=== PATIENT | female | born 1945 | race Caucasian/White ===

== ENCOUNTER → 2020-07-01 14:43 | Outpatient (CLI) | payer MEDICARE, SELFPAY ==
--- NOTE | 2020-07-01 14:44 | DI.RAD.S_ITS ---
PROCEDURE: XR DEXA AXIAL SKELETON INDICATIONS: Osteoporosis screening COMPARISON: None. FINDINGS: This blank DEXA report has been sent in error by the PACS system. The correct and complete report will be forthcoming in 1-2 days. Thank you for your patience and understanding. Dictated by: Cydney Jarrett MD, PhD on 07/01/2020 at 17:17 Approved by: Cydney Jarrett MD, PhD on 07/01/2020 at 17:17
== END ==
PROVIDERS: Family Provider Family Medicine; PCP Student in an Organized Health Care Education/Training Program; Referring Provider Student in an Organized Health Care Education/Training Program; Visit Provider Student in an Organized Health Care Education/Training Program
DX: M85.852 Other specified disorders of bone density and structure, left thigh (principal); Z13.820 Encounter for screening for osteoporosis; Z78.0 Asymptomatic menopausal state; F17.200 Nicotine dependence, unspecified, uncomplicated
CPT/HCPCS: 77080

== ENCOUNTER → 2020-07-22 08:17 | Outpatient (CLI) | payer MEDICARE, SELFPAY ==
[2020-07-22 08:54] LABS: INR 2.1 (0.9-1.3)
[2020-07-22 09:03] LABS: Cholesterol 191 mg/dL (140-199); HDL Cholesterol 46 mg/dL (40-60); LDL Cholesterol Calculated 116 mg/dL (<100); Triglycerides 143 mg/dL (35-150)
== END ==
PROVIDERS: Family Provider Family Medicine; PCP Student in an Organized Health Care Education/Training Program; Referring Provider Student in an Organized Health Care Education/Training Program; Visit Provider Student in an Organized Health Care Education/Training Program
DX: Z79.01 Long term (current) use of anticoagulants (principal); E78.2 Mixed hyperlipidemia
CPT/HCPCS: 36415; 80061; 85610

== ENCOUNTER → 2021-03-08 08:44 | Outpatient (CLI) | payer MEDICARE, SELFPAY ==
[2021-03-08 09:59] LABS: Prothrombin Time 60.1 SECONDS (10.1-12.7)
[2021-03-08 11:42] LABS: INR 5.1 (0.9-1.3)
== END ==
PROVIDERS: Family Provider Family Medicine; PCP Student in an Organized Health Care Education/Training Program; Referring Provider Student in an Organized Health Care Education/Training Program; Visit Provider Student in an Organized Health Care Education/Training Program
DX: Z79.01 Long term (current) use of anticoagulants (principal)
CPT/HCPCS: 36415; 85610

== ENCOUNTER → 2021-03-11 08:10 | Outpatient (CLI) | payer MEDICARE, SELFPAY ==
[2021-03-11 09:40] LABS: INR 1.5 (0.9-1.3); Prothrombin Time 17.6 SECONDS (10.1-12.7)
== END ==
PROVIDERS: Family Provider Family Medicine; PCP Student in an Organized Health Care Education/Training Program; Referring Provider Student in an Organized Health Care Education/Training Program; Visit Provider Student in an Organized Health Care Education/Training Program
DX: Z79.01 Long term (current) use of anticoagulants (principal)
CPT/HCPCS: 36415; 85610

== ENCOUNTER → 2021-03-16 08:38 | Outpatient (CLI) | payer MEDICARE, SELFPAY ==
[2021-03-16 09:39] LABS: INR 1.7 (0.9-1.3); Prothrombin Time 19.4 SECONDS (10.1-12.7)
== END ==
PROVIDERS: Family Provider Family Medicine; PCP Student in an Organized Health Care Education/Training Program; Referring Provider Student in an Organized Health Care Education/Training Program; Visit Provider Student in an Organized Health Care Education/Training Program
DX: I48.91 Unspecified atrial fibrillation (principal); Z79.01 Long term (current) use of anticoagulants
CPT/HCPCS: 36415; 85610

== ENCOUNTER → 2021-03-18 14:13 | Outpatient (CLI) | payer MEDICARE, SELFPAY ==
--- NOTE | 2021-03-18 14:15 | DI.RAD.S_ITS ---
PROCEDURE: XR CHEST 2V INDICATIONS: Chest congestion with cough TECHNIQUE: 2 views of the chest were acquired. COMPARISON: [facility], , CHEST 2 VIEW, 06/10/2014, 8:46. FINDINGS: Surgical changes and devices: None. Lungs and pleura: 4.9 x 4.3 cm masslike consolidation in the right hilar region. No pleural effusions or pneumothorax. Mediastinum: Mediastinal contours are normal. Heart size is normal. Bones and chest wall: No suspicious bony abnormalities. Soft tissues appear unremarkable. IMPRESSION: Masslike consolidation in the right hilar region. Differential considerations include a pneumonic infiltrate versus mass. Consider follow-up until resolution. Dictated by: Frank Aldridge M.D. on 03/18/2021 at 14:59 Approved by: Frank Aldridge M.D. on 03/18/2021 at 15:04
== END ==
LOC: LAB 14:17 → RAD 14:39
PROVIDERS: Family Provider Family Medicine; PCP Student in an Organized Health Care Education/Training Program; Referring Provider Student in an Organized Health Care Education/Training Program; Visit Provider Student in an Organized Health Care Education/Training Program
DX: R09.89 Other specified symptoms and signs involving the circulatory and respiratory systems (principal); R05.9 Cough, unspecified; R06.00 Dyspnea, unspecified
CPT/HCPCS: 71046

== ENCOUNTER → 2021-03-25 09:23 | Outpatient (CLI) | payer MEDICARE, SELFPAY ==
[2021-03-25 10:38] LABS: Prothrombin Time 23.3 SECONDS (10.1-12.7)
== END ==
PROVIDERS: Family Provider Family Medicine; PCP Student in an Organized Health Care Education/Training Program; Referring Provider Student in an Organized Health Care Education/Training Program; Visit Provider Student in an Organized Health Care Education/Training Program
DX: I48.91 Unspecified atrial fibrillation (principal); Z79.01 Long term (current) use of anticoagulants
CPT/HCPCS: 36415; 85610

== ENCOUNTER → 2021-04-27 09:13 | Outpatient (CLI) | payer MEDICARE, SELFPAY ==
[2021-04-27 11:03] LABS: Prothrombin Time 23.1 SECONDS (10.1-12.7)
== END ==
PROVIDERS: Family Provider Family Medicine; PCP Student in an Organized Health Care Education/Training Program; Referring Provider Student in an Organized Health Care Education/Training Program; Visit Provider Student in an Organized Health Care Education/Training Program
DX: Z79.01 Long term (current) use of anticoagulants (principal)
CPT/HCPCS: 36415; 85610

== ENCOUNTER 2021-07-24 07:50 | Observation (INO) | payer MEDICARE, SELFPAY ==
[2021-07-24] VITALS (23 sets, daily range): BP systolic 111–176; BP diastolic 62–90; PULSE 81–106; RESP 14–36; TEMP 35.6–36.8; O2SAT 91–97; BMI 17.4
--- NOTE | 2021-07-24 08:40 | ED_ITS ---
HPI - Weakness General Chief complaint: Weakness Stated complaint: States failure to thrive, dizzy x 3 months Time Seen by Provider: 07/24/21 07:51 Source: patient and family Mode of arrival: Family Vehicle History of Present Illness HPI Narrative: 68-year-old female heavy smoker presents with family in the chief complaint of generally failing to thrive over the past 2 weeks or so. A few weeks ago she was highly active and walking at least 1 mi per day and has had this slow and gradual decline. She denies any new medications or dietary change but has had significantly decreased appetite is having very little to or drink. She has had no fever or chills. She states that she has become profoundly weak and does not get up to do much at all over this time frame. She has had decreased bowel movements and is significantly nauseated and has very little desire to eat or drink. She has had no fever chills. She is a bit dizzy and lightheaded denies any classic vertigo. She has no chest pain or shortness of breath worse than normal. Related Data Home Medications Medication Instructions Recorded Confirmed acetaminophen 500 mg tablet 500 - 1,000 mg PO Q4H PRN #0 04/21/11 06/22/21 (Tylenol Extra Strength) warfarin 2.5 mg tablet 2.5 mg PO SEE INSTRUCTIONS tab 06/29/21 07/13/21 Previous Rx's Medication Instructions Recorded rosuvastatin 20 mg tablet (Crestor) 20 mg PO DAILY #90 tab 06/30/21 Allergies Allergy/AdvReac Type Severity Reaction Status Date / Time No Known Drug Allergies Allergy Verified 06/22/21 16:00 Review of Systems Review of Systems Narrative: GENERAL: See HPI HEENT: Denies sinus pain, ear pain, sore throat, difficulty swallowing, dizziness. RESPIRATORY: Denies dyspnea, cough, wheezing, hemoptysis, sputum. CARDIOVASCULAR: Denies chest pain, palpitations, orthopnea, edema, GASTROINTESTINAL: See HPI : Denies dysuria, frequency, incontinence, hematuria, urinary retention. MUSCULOSKELETAL: denies weakness, joint pain, or bony pain SKIN: Denies rash, skin lesions, or other NEUROLOGIC: Denies weakness, headache, numbness, change in speech, confusion, seizures, incoordination. PSYCHIATRIC: No concerning psychosocial issues. 12 point review of systems is negative except for those stated above Patient History Medical History Basal cell carcinoma of nose (2010) Coagulation disorder DVT (deep venous thrombosis) Surgical History History of colonoscopy with polypectomy (08/17/11) Family History Brother Age: 80 Cancer Hypertension Lung cancer Prostate cancer Mother Stroke History of blood clots Sister Age: 83 Dementia Hypertension Father Heart attack Grandfather Concussion Social History Smoking Status: Current every day smoker Smoking Status: Current every day smoker tobacco type: cigarettes Substance Use Type: does not use Exam Narrative Exam Narrative: GENERAL: [68 year old patient appears stated age. Well-developed patient, in mild distress. HEAD: Atraumatic. Normocephalic. EYES: Pupils equal round and reactive. Extraocular motions intact. No scleral icterus. No injection or drainage. ENT: Dry mucous membranes Nose without bleeding, purulent drainage. Throat without erythema, tonsillar hypertrophy or exudate. Airway patent. NECK: Trachea midline. Non tender CARDIOVASCULAR: Regular rate and rhythm without murmurs, gallops, or rubs. RESPIRATORY: Clear to auscultation. Breath sounds equal bilaterally. No wheezes, rales, or rhonchi. GASTROINTESTINAL: Abdomen soft, non-tender, nondistended. EXTREMITIES: No edema or joint tenderness. BACK: Nontender without deformity or crepitance. No flank tenderness. NEURO: AOx3. SKIN: Poor skin turgor No rash or erythema of visible areas Initial Vital Signs Initial Vital Signs: Vital Signs Temperature 97.8 F 07/24/21 08:06 Pulse Rate 106 H 07/24/21 08:06 Respiratory Rate 14 07/24/21 08:06 Blood Pressure 140/73 07/24/21 08:06 Pulse Oximetry 95 07/24/21 08:06 Course Orders Ordered: ED Orders 07/24/21 08:22 Basic Metabolic Panel Stat Complete Blood Count AUTO DIFF Stat Lactate (Lactic Acid) Stat Procalcitonin Stat Troponin I Stat 07/24/21 08:26 EKG-12 Lead Stat 07/24/21 09:27 XR acute abdomen series Stat 07/24/21 09:29 Blood Culture Stat 07/24/21 10:32 CT chest abd pel w con Stat 07/24/21 10:55 Urinalysis and Microscopic Stat Urine Culture Stat 07/24/21 12:30 Prothrombin Time INR Stat 07/24/21 13:55 COVID19 -Nasal RAPID/Pre-Proc Stat Sodium Chloride (Normal Saline 0.9%) 1,000 mls @ 150 mls/hr IV CONT KAILA Last Admin: 07/24/21 09:21 Dose: Not Given Documented by: MARIN Discontinued Medications Sodium Chloride (Normal Saline 0.9%) 1,000 mls @ 1,000 mls/hr IV BOLUS ONE Stop: 07/24/21 10:12 Last Infusion: 07/24/21 10:29 Dose: 0 mls/hr Documented by: Admin: 07/24/21 09:21 Dose: 1,000 mls/hr Documented by: MARIN Sodium Chloride (Normal Saline 0.9%) 1,000 mls @ 1,000 mls/hr IV BOLUS ONE Stop: 07/24/21 11:56 Last Infusion: 07/24/21 12:26 Dose: 0 mls/hr Documented by: Admin: 07/24/21 10:58 Dose: 1,000 mls/hr Documented by: WILLIAM Ceftriaxone Sodium 1,000 mg/ (Sodium Chloride) 100 mls @ 200 mls/hr IV NOW ONE Stop: 07/24/21 15:15 Last Admin: 07/24/21 15:25 Dose: 200 mls/hr Documented by: SONIA Ondansetron HCl (Ondansetron 4 Mg/2 Ml Inj) 4 mg IV NOW ONE Stop: 07/24/21 15:15 Last Admin: 07/24/21 15:25 Dose: 4 mg Documented by: SONIA Reevaluation(s) Reevaluation #1: Patient has now had 2 L of normal saline and finally produced a small amount of urine, she continues to be sufficiently weak that she requires assistance with ambulation to the bathroom. She is decompensated with the point that she will require hospitalization for stabilization of her condition. Treatment of her urinary tract infection, ongoing hydration and possible evaluation by physical therapy or case management depending on her response to therapies. Consultations Consultation #1: Hospitalist happy to accept Vital Signs Vital signs: Vital Signs - 8 hr 07/24/21 08:06 07/24/21 09:56 07/24/21 10:00 Temperature 97.8 F Pulse Rate 106 H 94 H 91 H Respiratory Rate 14 20 20 Blood Pressure 140/73 Pulse Oximetry 95 94 96 07/24/21 10:30 07/24/21 10:32 07/24/21 11:01 Temperature Pulse Rate 97 H 93 H 98 H Respiratory Rate 22 20 33 H Blood Pressure 173/79 H 170/79 H Pulse Oximetry 96 94 91 07/24/21 11:30 07/24/21 11:56 07/24/21 12:00 Temperature Pulse Rate 94 H 99 H 93 H Respiratory Rate 31 H 25 H 32 H Blood Pressure 158/74 H 176/72 H Pulse Oximetry 92 93 92 07/24/21 12:01 07/24/21 12:30 07/24/21 13:00 Temperature Pulse Rate 94 H 92 H 92 H Respiratory Rate 28 H 34 H 32 H Blood Pressure 159/69 H 157/71 H 141/66 H Pulse Oximetry 92 91 91 07/24/21 13:30 Temperature Pulse Rate 91 H Respiratory Rate 35 H Blood Pressure 139/81 Pulse Oximetry 92 MDM - Weakness Lab Data Result diagrams: 07/24/21 08:22 07/24/21 08:22 Labs: Lab Results 07/24/21 07/24/21 07/24/21 Range/Units 08:22 08:22 08:22 WBC 21.0 H (4.5-11.0) X10^3/uL RBC 4.44 (4.0-5.2) X10^6/uL Hgb 12.2 (12.0-16.0) g/dL Hct 37.4 (36-46) % MCV 84.3 (80-100) fL MCH 27.5 (26-34) PG MCHC 32.6 (30-36) % RDW 15.5 H (11.6-14.8) % Plt Count 434 H (150-400) X10^3/uL Neut % (Auto) 77.9 H (50-75) % Lymph % (Auto) 12.1 L (25-40) % [place] % (Auto) 5.7 (3-14) % Eos % (Auto) 3.6 (2-4) % Baso % (Auto) 0.7 (0-2) % Neut # (Auto) 72258 H (7342-4562) /uL Lymph # (Auto) 2500 (0774-0761) /uL [place]mer # (Auto) 1200 H (0-900) /uL Eos # (Auto) 800 H (0-450) /uL Baso # (Auto) 100 (0-100) /uL PT (10.1-12.7) SECONDS INR (0.9-1.3) Sodium 138 (137-145) mmol/L Potassium 4.3 (3.4-5.1) mmol/L Chloride 99 (98-107) mmol/L Carbon Dioxide 22 (22-32) mmol/L BUN 25 H (7-17) mg/dL Creatinine 0.70 (0.52-1.04) mg/dL Estimated GFR > 60 (>60) mL/min BUN/Creatinine Ratio 35.7 H (6-22) Glucose 88 (80-110) mg/dL Lactate 1.2 (0.7-2.1) mmol/L Calcium 9.1 (8.4-10.2) mg/dL Troponin I < 0.012 (0.01-0.034) ng/mL Procalcitonin (<0.5) ng/mL Urine Color Urine Appearance Urine pH (4.5-8.0) Ur Specific [place] (1.000-1.035) Urine Protein (Negative) Urine Glucose (UA) (Negative) g/dL Urine Ketones (NEGATIVE) Urine Occult Blood (Negative) Urine Nitrate (Negative) Urine Bilirubin (NEGATIVE) Urine Urobilinogen (0.2) E.U./dL Ur Leukocyte Esterase (NEGATIVE) Urine RBC (0-5/HPF) Urine WBC (0-5/HPF) Amorphous Sediment Urine Bacteria (None) Ur Culture Indicated? SARS-CoV-2 (PCR) (Negative) 07/24/21 07/24/21 07/24/21 Range/Units 08:22 10:55 12:30 WBC (4.5-11.0) X10^3/uL RBC (4.0-5.2) X10^6/uL Hgb (12.0-16.0) g/dL Hct (36-46) % MCV (80-100) fL MCH (26-34) PG MCHC (30-36) % RDW (11.6-14.8) % Plt Count (150-400) X10^3/uL Neut % (Auto) (50-75) % Lymph % (Auto) (25-40) % [place] % (Auto) (3-14) % Eos % (Auto) (2-4) % Baso % (Auto) (0-2) % Neut # (Auto) (7556-4679) /uL Lymph # (Auto) (9287-7578) /uL [place] # (Auto) (0-900) /uL Eos # (Auto) (0-450) /uL Baso # (Auto) (0-100) /uL PT 35.3 H (10.1-12.7) SECONDS INR 3.0 H (0.9-1.3) Sodium (137-145) mmol/L Potassium (3.4-5.1) mmol/L Chloride (98-107) mmol/L Carbon Dioxide (22-32) mmol/L BUN (7-17) mg/dL Creatinine (0.52-1.04) mg/dL Estimated GFR (>60) mL/min BUN/Creatinine Ratio (6-22) Glucose (80-110) mg/dL Lactate (0.7-2.1) mmol/L Calcium (8.4-10.2) mg/dL Troponin I (0.01-0.034) ng/mL Procalcitonin 0.08 (<0.5) ng/mL Urine Color Yellow Urine Appearance Clear Urine pH 5.5 (4.5-8.0) Ur Specific [place] 1.015 (1.000-1.035) Urine Protein Trace H (Negative) Urine Glucose (UA) Negative (Negative) g/dL Urine Ketones Trace H (NEGATIVE) Urine Occult Blood 2+ H (Negative) Urine Nitrate Negative (Negative) Urine Bilirubin Negative (NEGATIVE) Urine Urobilinogen 0.2 (0.2) E.U./dL Ur Leukocyte Esterase Trace H (NEGATIVE) Urine RBC 1-5/hpf (0-5/HPF) Urine WBC 5-10/hpf H (0-5/HPF) Amorphous Sediment 1+ Urine Bacteria Few (2-10) H (None) Ur Culture Indicated? Specimen cultured SARS-CoV-2 (PCR) (Negative) 07/24/21 Range/Units 13:55 WBC (4.5-11.0) X10^3/uL RBC (4.0-5.2) X10^6/uL Hgb (12.0-16.0) g/dL Hct (36-46) % MCV (80-100) fL MCH (26-34) PG MCHC (30-36) % RDW (11.6-14.8) % Plt Count (150-400) X10^3/uL Neut % (Auto) (50-75) % Lymph % (Auto) (25-40) % [place] % (Auto) (3-14) % Eos % (Auto) (2-4) % Baso % (Auto) (0-2) % Neut # (Auto) (9458-3203) /uL Lymph # (Auto) (7931-0034) /uL [place] # (Auto) (0-900) /uL Eos # (Auto) (0-450) /uL Baso # (Auto) (0-100) /uL PT (10.1-12.7) SECONDS INR (0.9-1.3) Sodium (137-145) mmol/L Potassium (3.4-5.1) mmol/L Chloride (98-107) mmol/L Carbon Dioxide (22-32) mmol/L BUN (7-17) mg/dL Creatinine (0.52-1.04) mg/dL Estimated GFR (>60) mL/min BUN/Creatinine Ratio (6-22) Glucose (80-110) mg/dL Lactate (0.7-2.1) mmol/L Calcium (8.4-10.2) mg/dL Troponin I (0.01-0.034) ng/mL Procalcitonin (<0.5) ng/mL Urine Color Urine Appearance Urine pH (4.5-8.0) Ur Specific [place] (1.000-1.035) Urine Protein (Negative) Urine Glucose (UA) (Negative) g/dL Urine Ketones (NEGATIVE) Urine Occult Blood (Negative) Urine Nitrate (Negative) Urine Bilirubin (NEGATIVE) Urine Urobilinogen (0.2) E.U./dL Ur Leukocyte Esterase (NEGATIVE) Urine RBC (0-5/HPF) Urine WBC (0-5/HPF) Amorphous Sediment Urine Bacteria (None) Ur Culture Indicated? SARS-CoV-2 (PCR) Negative (Negative) Imaging Data CT scan - chest: Radiologist Impression: Launch?Image [address] [address] [address] Scan Report Signed Patient: Alize Eldridge MR#: [id number] : 1945 Acct:[id number] Age/Sex: 76 / F Date of Service: 07/24/21 Loc: ED Accession Number: [id number] ?? Procedure: CT chest abd pel w con Ordering Provider: Wolfgang Leon D.O. PROCEDURE:? CT CHEST ABD PEL W CON ? INDICATIONS:? fatigue, chest/back pain, hilar mass, abdominal pain, appeti ? TECHNIQUE:? After the administration of oral and intravenous contrast, axial sections acquired from the supraclavicular neck to the pubic symphysis.? Coronal and sagittal reformats were performed.? For radiation dose reduction, the following was used:? automated exposure control, adjustment of mA and/or kV according to patient size.? ? COMPARISON:[facility], CT, THORAX WITHOUT CONTRAST, 01/28/2013, 8:28.? [facility], , CHEST 2 VIEW, 06/10/2014, 8:46.? [facility], [place], PET/CT SKULL BASE TO MID THIGH, 02/15/2013, 11:27.? [facility], , XR CHEST 2V, 03/18/2021, 14:15. ? FINDINGS:? Image quality:? Excellent.? ? CHEST: Lower Neck: No enlarged lymph nodes.? Thyroid: Within normal limits. Axillae: No enlarged lymph nodes. Chest Wall:? There is a 2.5 x 3.5 cm subcutaneous mass in the right upper lateral aspect of the chest wall, suspicious for metastasis.? ? Lungs and Airways:? There is a large mass in the right perihilar area measuring 6.5 cm AP, 5.1 cm transverse and 5.1 cm cephalocaudal.? There is narrowing and occlusio n of the right upper and middle lobe bronchus, causing right middle lobe atelectasis.? The mass is seen encasing the right main pulmonary artery.? There is focal pleural thickening in the right upper lobe suspicious for pleural metastasis. ? There is bronchial wall thickening and filling defect in the right lower lobe bronchus.? Discoid atelectasis in in the right lower lobe.? ? There is a 0.8 x 1.4 cm nodule in the left upper lobe anterior to the major fissure, slightly enlarged and demonstrating increased density when compared to the last CT dated 01/30/2013. ? Pleura: No pneumothorax or pleural effusions.? ? Heart: Heart size is normal.? No pericardial effusion.? Mild to moderate coronary artery calcification. Thoracic Vessels: The aorta and pulmonary arteries demonstrate normal size.? Mediastinum and Faye:? There is right hilar and mediastinal lymphadenopathy consistent with kim metastasis.? The right hilar lymph node measures 1.9 x 5.6 cm.? There is a 1.3 x 1.8 cm precarinal lymph node.? There is a 1.9 x 4.3 cm subcarinal lymph node.? Prominent AP window lymph nodes measure 0.8 x 1.3 cm suspicious for metastasis.? Esophagus: No wall thickening.? Small hiatal hernia. ? ? ABDOMEN: Liver:? Unremarkable.? ? Gallbladder:? Unremarkable.? ? Biliary ducts:? Unremarkable.? ? Pancreas:? Unremarkable.? ? Spleen:? Unremarkable.? ? Adrenal Glands:? Bilateral adrenal masses consistent with metastasis.? The right adrenal mass measures 6.5 x 8.3 cm.? The left adrenal mass measures 4.3 x 4.6 cm.? ? Kidneys and Ureters:? Unremarkable.? ? ? Stomach and Bowel:? Stomach, small bowel loops, and colon are normal in caliber.? Diverticulosis without diverticulitis. Peritoneum:? No abnormal intraperitoneal fluid.? No free air.? ? Ventral Wall: ? No hernia.? Abdominal Nodes:? No retroperitoneal or mesenteric adenopathy by size criteria.? Vessels:? Mild infrarenal abdominal aortic aneurysm measuring 3.3 cm AP x 3.4 cm transverse..? Moderate atherosclerotic calcifications. ? PELVIS: Pelvic Organs:? Unremarkable.? ? Bladder:? Unremarkable.? ? Pelvic Nodes: No enlarged lymph nodes.? Miscellaneous: No inguinal hernias are seen. ? ? ? Bones:? Gbozaolj-[id number] levoscoliosis.? Severe degenerative changes in lumbar spine. ? ? ? IMPRESSION:? ? 1.? Large right perihilar mass consistent with lung cancer. ? 2.? Focal pleural thickening in the right upper lobe suspicious for pleural metastasis. ? 3.? Right hilar and mediastinal lymphadenopathy consistent with kim metastasis. ? 4.? Bilateral adrenal masses consistent with metastases. ? 5. A mass in the lateral aspect of the anterior chest wall, suspicious for metastasis. ? ? 6. Filling defect in the right lower lobe bronchus.? The finding could be due to endobronchial neoplasm or mucous retention cyst.? Recommend bronchoscopy for follow-up. ? 7.? Mild infrarenal abdominal aortic aneurysm. ? 8. Diverticulosis without diverticulitis.? ? 9. Gngwghds-sn-xyfqgw levoscoliosis.? There are severe degenerative changes in lumbar spine. ? ? Dictated by: Bronson Rosenthal M.D. on 07/24/2021 at 10:42 ? ? Approved by: Bronson Rosenthal M.D. on 07/24/2021 at 11:03 ? ECG Data Interpretation: EKG is normal sinus rhythm rate [ 100] and free of any signs of ischemia or ectopy. No ST segmental elevation or depression. No T wave inversions Discharge Plan Departure Patient Disposition: Admitted as Observation Clinical Impression: Adult failure to thrive, Acute UTI, Weakness, Mass of right lung, Adrenal mass Admit Date/Time: 07/24/21 14:09 Admit Provider: Adrián Barahona
[2021-07-24 08:50] LABS: BUN Creatinine Ratio 35.7 (6-22); Blood Urea Nitrogen 25 mg/dL (7-17); Calcium 9.1 mg/dL (8.4-10.2); Carbon Dioxide 22 mmol/L (22-32); Chloride 99 mmol/L (98-107); Estimated Glomerular Filt Rate > 60 mL/min (>60); Glucose 88 mg/dL (80-110); HEMOLYSIS 25 (0-50); Potassium 4.3 mmol/L (3.4-5.1); Sodium 138 mmol/L (137-145)
[2021-07-24 08:52] LABS: Add Manual Diff / Slide Review NO; Basophils Absolute Auto 100 /uL (0-100); Basophils Percent Auto 0.7 % (0-2); Eosinophils Absolute Auto 800 /uL (0-450); Eosinophils Percent Auto 3.6 % (2-4); Hematocrit 37.4 % (36-46); Hemoglobin 12.2 g/dL (12.0-16.0); Lymphocytes Absolute Auto 2500 /uL (1100-4500); Lymphocytes Percent Auto 12.1 % (25-40); Mean Corpuscular HGB Conc 32.6 % (30-36); Mean Corpuscular Hemoglobin 27.5 PG (26-34); Mean Corpuscular Volume 84.3 fL (80-100); Monocytes Absolute Auto 1200 /uL (0-900); Monocytes Percent Auto 5.7 % (3-14); Neutrophils Absolute Auto 16400 /uL (1500-7000); Neutrophils Percent Auto 77.9 % (50-75); Platelet Count 434 X10^3/uL (150-400); Red Blood Cell Count 4.44 X10^6/uL (4.0-5.2); Red Cell Distribution Width 15.5 % (11.6-14.8)
[2021-07-24 09:03] LABS: Troponin I < 0.012 ng/mL (0.01-0.034)
[2021-07-24] MEDS: SODIUM CHLORIDE 0.9% 1,000 ML 1000 ML IV ×2 (09:21→10:58)
--- NOTE | 2021-07-24 09:27 | DI.RAD.S_ITS ---
PROCEDURE: XR ACUTE ABDOMEN SERIES INDICATIONS: fatigue, abdominal pain, decreased BM TECHNIQUE: One view chest and two views of the abdomen were acquired. COMPARISON: CT, THORAX WITHOUT CONTRAST, 01/28/2013, 8:28. [facility], PET/CT SKULL BASE TO MID THIGH, 02/15/2013, 11:27. [facility], CHEST 2 VIEW, 06/10/2014, 8:46. [facility], CR, XR CHEST 2V, 03/18/2021, 14:15. FINDINGS: Surgical changes and devices: None. Chest: Masslike density in the right hilum appears unchanged from 03/18/2021. There is right hemidiaphragm elevation. Linear densities in the right base are likely scars and atelectasis. Hyperinflation consistent with COPD Heart size is normal. No pleural effusions. No pneumoperitoneum. Abdomen: Bowel gas pattern is nonobstructive. Moderate amount of stool in colon. No suspicious calcifications. Visualized solid organ contours appear normal. Bones: No suspicious bony lesions. Moderate to severe scoliosis and degenerative changes in lumbar spine. IMPRESSION: 1. Masslike density in the right hilum appears unchanged. Differential diagnosis include perihilar pneumonia, perihilar mass and lymphadenopathy. If clinically indicated, nonurgent contrast-enhanced chest CT is recommended. 2. Moderate amount of stool in colon. 3. Nonobstructive bowel gas pattern. Dictated by: Bronson Rosenthal M.D. on 07/24/2021 at 9:24 Approved by: Bronson Rosenthal M.D. on 07/24/2021 at 9:29
--- NOTE | 2021-07-24 10:32 | DI.CT.S_ITS ---
PROCEDURE: CT CHEST ABD PEL W CON INDICATIONS: fatigue, chest/back pain, hilar mass, abdominal pain, appeti TECHNIQUE: After the administration of oral and intravenous contrast, axial sections acquired from the supraclavicular neck to the pubic symphysis. Coronal and sagittal reformats were performed. For radiation dose reduction, the following was used: automated exposure control, adjustment of mA and/or kV according to patient size. COMPARISON:[facility], CT, THORAX WITHOUT CONTRAST, 01/28/2013, 8:28. [facility], CR, CHEST 2 VIEW, 06/10/2014, 8:46. [facility], [place], PET/CT SKULL BASE TO MID THIGH, 02/15/2013, 11:27. [facility], , XR CHEST 2V, 03/18/2021, 14:15. FINDINGS: Image quality: Excellent. CHEST: Lower Neck: No enlarged lymph nodes. Thyroid: Within normal limits. Axillae: No enlarged lymph nodes. Chest Wall: There is a 2.5 x 3.5 cm subcutaneous mass in the right upper lateral aspect of the chest wall, suspicious for metastasis. Lungs and Airways: There is a large mass in the right perihilar area measuring 6.5 cm AP, 5.1 cm transverse and 5.1 cm cephalocaudal. There is narrowing and occlusion of the right upper and middle lobe bronchus, causing right middle lobe atelectasis. The mass is seen encasing the right main pulmonary artery. There is focal pleural thickening in the right upper lobe suspicious for pleural metastasis. There is bronchial wall thickening and filling defect in the right lower lobe bronchus. Discoid atelectasis in in the right lower lobe. There is a 0.8 x 1.4 cm nodule in the left upper lobe anterior to the major fissure, slightly enlarged and demonstrating increased density when compared to the last CT dated 01/30/2013. Pleura: No pneumothorax or pleural effusions. Heart: Heart size is normal. No pericardial effusion. Mild to moderate coronary artery calcification. Thoracic Vessels: The aorta and pulmonary arteries demonstrate normal size. Mediastinum and Faye: There is right hilar and mediastinal lymphadenopathy consistent with kim metastasis. The right hilar lymph node measures 1.9 x 5.6 cm. There is a 1.3 x 1.8 cm precarinal lymph node. There is a 1.9 x 4.3 cm subcarinal lymph node. Prominent AP window lymph nodes measure 0.8 x 1.3 cm suspicious for metastasis. Esophagus: No wall thickening. Small hiatal hernia. ABDOMEN: Liver: Unremarkable. Gallbladder: Unremarkable. Biliary ducts: Unremarkable. Pancreas: Unremarkable. Spleen: Unremarkable. Adrenal Glands: Bilateral adrenal masses consistent with metastasis. The right adrenal mass measures 6.5 x 8.3 cm. The left adrenal mass measures 4.3 x 4.6 cm. Kidneys and Ureters: Unremarkable. Stomach and Bowel: Stomach, small bowel loops, and colon are normal in caliber. Diverticulosis without diverticulitis. Peritoneum: No abnormal intraperitoneal fluid. No free air. Ventral Wall: No hernia. Abdominal Nodes: No retroperitoneal or mesenteric adenopathy by size criteria. Vessels: Mild infrarenal abdominal aortic aneurysm measuring 3.3 cm AP x 3.4 cm transverse.. Moderate atherosclerotic calcifications. PELVIS: Pelvic Organs: Unremarkable. Bladder: Unremarkable. Pelvic Nodes: No enlarged lymph nodes. Miscellaneous: No inguinal hernias are seen. Bones: Nenndsyy-nw-ldyldk levoscoliosis. Severe degenerative changes in lumbar spine. IMPRESSION: 1. Large right perihilar mass consistent with lung cancer. 2. Focal pleural thickening in the right upper lobe suspicious for pleural metastasis. 3. Right hilar and mediastinal lymphadenopathy consistent with kim metastasis. 4. Bilateral adrenal masses consistent with metastases. 5. A mass in the lateral aspect of the anterior chest wall, suspicious for metastasis. 6. Filling defect in the right lower lobe bronchus. The finding could be due to endobronchial neoplasm or mucous retention cyst. Recommend bronchoscopy for follow-up. 7. Mild infrarenal abdominal aortic aneurysm. 8. Diverticulosis without diverticulitis. 9. Izzqfcwn-oo-swjmig levoscoliosis. There are severe degenerative changes in lumbar spine. Dictated by: Bronson Rosenthal M.D. on 07/24/2021 at 10:42 Approved by: Bronson Rosenthal M.D. on 07/24/2021 at 11:03
[2021-07-24 11:13] LABS: Appearance Urine UA CLEAR; Bilirubin Urine UA NEGATIVE (NEGATIVE); Color Urine UA YELLOW; Glucose Urine UA NEGATIVE (Negative); Ketones Urine UA TRACE (NEGATIVE); Leukocyte Esterase Urine UA TRACE (NEGATIVE); Nitrite Urine UA NEGATIVE (Negative); Occult Blood Urine UA 2+ (Negative); Protein Urine UA TRACE (Negative); Specific Gravity Urine UA 1.015 (1.000-1.035); Urobilinogen Urine UA 0.2 E.U./dL (0.2)
[2021-07-24 11:25] LABS: pH Urine UA 5.5 (4.5-8.0)
[2021-07-24 11:38] LABS: Amorphous Sediment Urine 1+; Bacteria Urine Few (2-10); RBC Urine 1-5/HPF (0-5/HPF); WBC Urine 5-10/HPF (0-5/HPF)
[2021-07-24 11:39] LABS: Culture Indicated Urine Specimen Cultured
[2021-07-24 12:25] LABS: Lactate (Lactic Acid) 1.2 mmol/L (0.7-2.1)
[2021-07-24 12:45] LABS: Prothrombin Time 35.3 SECONDS (10.1-12.7)
[2021-07-24 12:46] LABS: Procalcitonin 0.08 ng/mL (<0.5)
--- NOTE | 2021-07-24 13:11 | PC.NURSE ---
I assisted this patient to the bedside commode around 11am. When patient was finished using the commode and transfering back to the bed she lost her balance and I was able to maintain the patient standing and slowly sat down on the side of the bed. The patient had no injury and was able to successfully get back into the laying position.
[2021-07-24 14:59] LABS: COVID19 -Nasal RAPID Negative (Negative)
[2021-07-24] MEDS: ONDANSETRON 4 MG/2 ML INJ IV (15:25)
[2021-07-24] MEDS: cefTRIAXone 1,000 MG in SODIUM CHLORIDE 0.9% 100 ML 200 ML IV (15:25)
--- NOTE | 2021-07-24 18:41 | P.HP_ITS ---
History of Present Illness History of Present Illness Date Patient Seen: 07/24/21 Time Patient Seen: 17:30 Chief complaint: States failure to thrive, dizzy x 3 months Narrative: Patient is 76-year-old female until recently a heavy smoker, on warfarin for the past 40 years for history of recurrent thromboembolism, presented to the ED with complaints of loss of appetite, nausea, dizziness and general malaise. Past few months she has been unsteady on her feet but denies falling in the past year. Patient states she has lost 27 lb over the past few months. Reports various pain in her sides, abdomen, back and hips. She denies new cough or change in respiratory status. Also denies fevers or night sweats. On March 18, 2021 she had outpatient x-ray which showed a right hilar mass versus pneumonia. It seems she was treated with antibiotics at the time. Back in 2012 she had upper lobe lung nodules and a PET scan was done which shows a low FDG uptake. A chest abdomen and pelvis CT today showed concerning findings of large right hilar mass consistent with primary lung CA, finding suspicious for pleural metastases in right upper lobe, right hilar and mediastinal lymphadenopathy, bilateral adrenal masses consistent with Mets, and a mass in the lateral aspect of the anterior chest, filling defect in right lower lobe bronchus as well as incidental 3.4 cm infrarenal abdominal aortic aneurysm. Additional findings in the ED were elevated WBC 21 K without significant left shift, normal hemoglobin, normal electrolytes BUN and creatinine and LFTs. Procalcitonin normal. Her INR was 3.0 on warfarin therapy. Her UA showed few bacteria and leukocytes and culture sent. She denies dysuria symptoms. Patient History Medical History Basal cell carcinoma of nose (2009) Coagulation disorder DVT (deep venous thrombosis) Surgical History History of colonoscopy with polypectomy (08/17/11) Family & Social History Family History Brother Age: 80 Cancer Hypertension Lung cancer Prostate cancer Mother Stroke History of blood clots Sister Age: 83 Dementia Hypertension Father Heart attack Grandfather Concussion Social History: household members children Prior Living Arrangements House Safety & Behavioral: Feels Safe in Current Yes Environment Been Physically Hurt or No Threatened By a Person Tobacco & Substance use: Tobacco type cigarettes Smoking Status Current every day smoker alcohol intake never Substance Use Type does not use Meds Home Medications and Allergies Home Medications Medication Instructions Recorded Confirmed Type acetaminophen 500 mg tablet 500 - 1,000 mg PO Q4H PRN #0 04/21/11 07/24/21 History (Tylenol Extra Strength) warfarin 2.5 mg tablet 2.5 mg PO SEE INSTRUCTIONS tab 06/29/21 07/24/21 History rosuvastatin 20 mg tablet (Crestor) 20 mg PO DAILY #90 tab 06/30/21 07/24/21 Rx Allergies Allergy/AdvReac Type Severity Reaction Status Date / Time No Known Drug Allergies Allergy Verified 06/22/21 16:00 Review of Systems Review of Systems Narrative: Complete 10 point ROS otherwise negative. Exam Vital Signs (past 8 hours): - 07/24/21 11:01 07/24/21 11:30 07/24/21 11:56 Temperature Pulse Rate 98 H 94 H 99 H Respiratory Rate 33 H 31 H 25 H Blood Pressure 170/79 H 158/74 H 176/72 H Pulse Oximetry 91 92 93 07/24/21 12:00 07/24/21 12:01 07/24/21 12:30 Temperature Pulse Rate 93 H 94 H 92 H Respiratory Rate 32 H 28 H 34 H Blood Pressure 159/69 H 157/71 H Pulse Oximetry 92 92 91 07/24/21 13:00 07/24/21 13:30 07/24/21 14:00 Temperature Pulse Rate 92 H 91 H 88 Respiratory Rate 32 H 35 H 34 H Blood Pressure 141/66 H 139/81 145/71 H Pulse Oximetry 91 92 91 07/24/21 14:30 07/24/21 15:00 07/24/21 15:30 Temperature Pulse Rate 91 H 94 H 90 Respiratory Rate 36 H 36 H 33 H Blood Pressure 144/90 H 157/72 H 141/72 H Pulse Oximetry 92 97 95 07/24/21 16:00 07/24/21 16:30 Temperature 97.8 F Pulse Rate 81 97 H Respiratory Rate 22 Blood Pressure 154/66 H 136/68 Pulse Oximetry 93 93 Oxygen Delivery Method Nasal Cannula Oxygen Flow Rate 2 Narrative Exam Narrative: General: She is thin pleasant elderly female in no acute distress HEENT: Nontraumatic, anicteric, pupils equal and reactive, oropharynx unremarkable Neck: No cervical or supraclavicular lymphadenopathy Lungs: Clear to auscultation Heart: Normal S1 and S2, regular rate and rhythm, without murmur Back: There is a hard soft tissue lump on the medial right upper back Breasts: There is right axillary firm irregular axillary mass, no lump in right or left breast tissue Abdomen: Nontender, no abdominal mass, no HSM Extremities: No cyanosis or edema Neurological: Pleasant, not confused, normal affect and speech Objective Labs Result Diagrams: 07/24/21 08:22 07/24/21 08:22 Labs: Laboratory Results - last 24 hr 07/24/21 07/24/21 07/24/21 08:22 08:22 08:22 WBC 21.0 H RBC 4.44 Hgb 12.2 Hct 37.4 MCV 84.3 MCH 27.5 MCHC 32.6 RDW 15.5 H Plt Count 434 H Neut % (Auto) 77.9 H Lymph % (Auto) 12.1 L [place] % (Auto) 5.7 Eos % (Auto) 3.6 Baso % (Auto) 0.7 Neut # (Auto) 58300 H Lymph # (Auto) 2500 [place] # (Auto) 1200 H Eos # (Auto) 800 H Baso # (Auto) 100 PT INR Sodium 138 Potassium 4.3 Chloride 99 Carbon Dioxide 22 BUN 25 H Creatinine 0.70 Estimated GFR > 60 BUN/Creatinine Ratio 35.7 H Glucose 88 Lactate 1.2 Calcium 9.1 Troponin I < 0.012 Procalcitonin Urine Color Urine Appearance Urine pH Ur Specific [place] Urine Protein Urine Glucose (UA) Urine Ketones Urine Occult Blood Urine Nitrate Urine Bilirubin Urine Urobilinogen Ur Leukocyte Esterase Urine RBC Urine WBC Amorphous Sediment Urine Bacteria Ur Culture Indicated? SARS-CoV-2 (PCR) 07/24/21 07/24/21 07/24/21 08:22 10:55 12:30 WBC RBC Hgb Hct MCV MCH MCHC RDW Plt Count Neut % (Auto) Lymph % (Auto) [place] % (Auto) Eos % (Auto) Baso % (Auto) Neut # (Auto) Lymph # (Auto) [place] # (Auto) Eos # (Auto) Baso # (Auto) PT 35.3 H INR 3.0 H Sodium Potassium Chloride Carbon Dioxide BUN Creatinine Estimated GFR BUN/Creatinine Ratio Glucose Lactate Calcium Troponin I Procalcitonin 0.08 Urine Color Yellow Urine Appearance Clear Urine pH 5.5 Ur Specific [place] 1.015 Urine Protein Trace H Urine Glucose (UA) Negative Urine Ketones Trace H Urine Occult Blood 2+ H Urine Nitrate Negative Urine Bilirubin Negative Urine Urobilinogen 0.2 Ur Leukocyte Esterase Trace H Urine RBC 1-5/hpf Urine WBC 5-10/hpf H Amorphous Sediment 1+ Urine Bacteria Few (2-10) H Ur Culture Indicated? Specimen cultured SARS-CoV-2 (PCR) 07/24/21 13:55 WBC RBC Hgb Hct MCV MCH MCHC RDW Plt Count Neut % (Auto) Lymph % (Auto) [place] % (Auto) Eos % (Auto) Baso % (Auto) Neut # (Auto) Lymph # (Auto) [place] # (Auto) Eos # (Auto) Baso # (Auto) PT INR Sodium Potassium Chloride Carbon Dioxide BUN Creatinine Estimated GFR BUN/Creatinine Ratio Glucose Lactate Calcium Troponin I Procalcitonin Urine Color Urine Appearance Urine pH Ur Specific [place] Urine Protein Urine Glucose (UA) Urine Ketones Urine Occult Blood Urine Nitrate Urine Bilirubin Urine Urobilinogen Ur Leukocyte Esterase Urine RBC Urine WBC Amorphous Sediment Urine Bacteria Ur Culture Indicated? SARS-CoV-2 (PCR) Negative Assessment & Plan Assessment & Plan narrative: 68-year-old female heavy smoker presenting with general malaise, loss of appetite, recent severe weight loss and unsteady gait. 1. Metastatic malignancy likely lung primary -CT findings of large right hilar mass with pleural metastases, mediastinal and hilar adenopathy, anterior chest wall metastases and adrenal metastases highly suspicious for stage IV lung CA -on exam she has firm irregular mass in the right axilla which could potentially be biopsied, she is actually set up later this month for ultrasound-guided bi opsy which was scheduled through PCP office -received supportive IV hydration in ED x2 L, can Hep-Lock IV -will need outpatient Oncology follow-up BRIGIDO to determine best course of action going forward, may need diagnostic bronchoscopy or CT-guided needle biopsy of right lung mass -has various non acute pain complaints in back, abdomen, hips which is currently being relieved by CBD gummies -nutrition consult 2. Unsteady gait -consult PT, patient may benefit from walker, has not had a fall 3. Chronic anticoagulation for history of thromboembolism -INR 3.0, continue warfarin 2.5 mg q.p.m. 4. Leukocytosis -probably stress/inflammatory related, patient without fever or obvious appearance of a serious infection, urine culture sent although not having urinary symptoms -Rocephin 1 g IV given in the ED -recheck CBC in a.m. Admitted to observation. Likely discharge home tomorrow with close follow-up and oncology referral. Daughter lives with patient. Time Spent With Patient Critical Care time: I spent a total of [] minutes of critical care time on this patient's care today; this time is exclusive of procedural time. Quality VTE Deep Vein Thrombosis/Pulmonary Embolism Present on Admission: No
[2021-07-24] MEDS: ATORVASTATIN 20 MG TABLET 40 MG PO (20:44)
[2021-07-24] MEDS: ACETAMINOPHEN 325 MG TABLET 650 MG PO (20:57)
[2021-07-25] VITALS (14 sets, daily range): BP systolic 117–139; BP diastolic 67–79; PULSE 85–97; RESP 16–19; TEMP 36.1–36.8; O2SAT 91–98
[2021-07-25] MEDS: ONDANSETRON 4 MG/2 ML INJ IV ×2 (01:52→12:47)
[2021-07-25 06:16] LABS: Hematocrit 35.3 % (36-46); Hemoglobin 11.6 g/dL (12.0-16.0); Mean Corpuscular HGB Conc 32.8 % (30-36); Mean Corpuscular Hemoglobin 27.5 PG (26-34); Mean Corpuscular Volume 83.8 fL (80-100); Platelet Count 402 X10^3/uL (150-400); Red Blood Cell Count 4.21 X10^6/uL (4.0-5.2); Red Cell Distribution Width 15.3 % (11.6-14.8); White Blood Cell Count 24.1 X10^3/uL (4.5-11.0)
[2021-07-25 06:26] LABS: Add Manual Diff / Slide Review YES
[2021-07-25 06:58] LABS: Neutrophils Absolute Manual 18798 /uL (3000-5900); RBC Morphology Normal Morphology; Total Cells Counted 100
[2021-07-25] MEDS: levoFLOXacin 250 MG TABLET 750 MG PO (09:07)
--- NOTE | 2021-07-25 11:05 | PT.IIE ---
Medical History (Last Reviewed 07/24/21 @ 12:15 by Wolfgang Leon DO) Basal cell carcinoma of nose (2010) Coagulation disorder DVT (deep venous thrombosis) Physical Therapy Inpatient Evaluation/Re-Eval M1 PT/OT-IP Prior Functional Status Start: 07/25/21 07:53 Freq: NEEDED Status: Active Protocol: Document 07/25/21 11:05 AW (Rec: 07/25/21 13:10 AW [id number]) Medical Review Prior Functional Status Medical History Reviewed Yes Communication Pt is able to make her needs known but with some confusion. Mobility and Gait Pt and her daughter state pt was independent until a few weeks ago. She was able to go up and down stairs at home and walk around the house without holding on to anything. Recently, however, pt has reported significant weakness and SOB limiting her household mobility and pt is now needing to stay near ríos and furniture for support. Activities of Daily Living and IADL's Until recently, pt was independent with ADL's including bathing in a tub without assist. She now needs assist with dressing tasks and has been unable to get in and out of the tub. Prior Functional Level (Other details) Pt denies falls but admits to near falls. Social History Household Members children Living Arrangements House Number of Floors (Floors) 3 or More Floors Number of Stairs To Enter/Railing? 4 BRITTANY with R rail ascending. Pt climbs a full flight of curved stairs with unilateral rail to her bedroom. Home Environment Standard Height Toilet,Tub/ Shower Home Equipment Quad Cane Employment Status Retired Additional Social History Comment Pt retired from [employer] ~12 years ago. Her daughters, Patricia and Rosalia, live with her. Both daughters work outside the home but are able to provide nearly 24/7 assist between them. M2 PT-IP Current Condition Start: 07/25/21 07:53 Freq: NEEDED Status: Active Protocol: Document 07/25/21 11:05 AW (Rec: 07/25/21 13:10 AW [id number]) Physical Therapy Current Condition Current Condition Evaluation Date 07/25/21 Treatment Diagnosis metastatic malignancy, impaired mobility and gait Onset Date a few weeks M3 PT-IP Subjective Start: 07/25/21 07:53 Freq: NEEDED Status: Active Protocol: Document 07/25/21 11:05 AW (Rec: 07/25/21 13:10 AW [id number]) Subjective Physical Therapy Visit Type Type Initial Evaluation Visit Start Time 10:34 Visit Stop Time 11:05 Total Visit Minutes 31 Notes Pt's daughter, Patrciia, was present during subjective exam and contributed to history. Number of RES COUNSELOR Visits 0 Physical Therapy Visit Comments Patient Comments Pt is willing to participate with PT Patient Goals Return home with family support Therapy Pain Assessment Pain When Pain Assessed During Mobility Pain Present Pain Present Pain Reported Location generalized Scale Used not quantified M4 PT-IP Mobility and Gait Start: 07/25/21 07:53 Freq: NEEDED Status: Active Protocol: Document 07/25/21 11:05 AW (Rec: 07/25/21 13:10 AW [id number]) PT-Bed Mobility Assessment Supine to Sit Supine to Sit Contact Guard Assistance Scooting Scooting to Edge of Bed Contact Guard Assistance PT-Transfer Assessment Sit to and From Stand Sit to and from Stand Contact Guard Assistance,Use of Upper Extremities Equipment Transfer Assistive Device Gait Belt,Front Wheeled Walker Orthotic/Prosthetic Devices or Brace: No Transfers Transfer Destination Chair Transfer Technique ambulated with FWW Transfer Ability Level of Assist Contact Guard Assistance Comments Mobility Comments Pt was lying in bed as PT arrived. SpO2 95% on 1.5 L/min via NC. RN advised a room air trial. PT removed O2 and SpO2 was 94% at rest. Pt sat up EOB CGA. She stood and PT attempted to assess gait without device but pt quickly reached for the walker set on her left side. If there's something there, I will hold on to it. Pt needed cues to keep the walker close to her trunk and min/mod A to navigate obstacles in the tight hospital room environment. She walked 8 feet and sat on the chair with cues to use UE's to slow her descent. WOB had increased and pt complained of SOB. SpO2 was 88% on room air. PT cued breathing in through nose. SpO2 did not recover after four minutes. PT reapplied O2 and SpO2 recovered to 93%. Pt stood and ambulated 30 feet in the room with FWW min A before sitting on the chair again. SpO2 was stable 92-94% on 1.5 L/min. Pt was left in the chair with call light and tray table in reach. Gait Assessment Gait Gait Assistance Required: Minimum Assistance,Moderate Assistance,1 Person Assist Distance (Feet) 30 Assistive Devices Assistive Device Gait Belt,Front Wheeled Walker Orthotic/Prosthetic Devices or Brace: No Gait Deviations General Gait Pattern Decreased Stride Length, Decreased Feet Clearance, Flexed Trunk,Lateral Trunk Lean Factors Limiting Gait Function Factors Limiting Gait Function Decreased Activity Tolerance, Decreased Strength, Incoordination,Poor Balance, Poor Safety Awareness, Respiratory Distress Comments Gait Comments See mobility comments for details. Pt was noted to lean to the right in sitting as well as during gait. She needed min/mod assist to navigate obstacles. Stair Climbing Assessment Comments Stair Climbing Comments Not assessed due to respiratory status. PT-Balance Assessment Sitting Balance and Reactions Static Sitting Balance Ability Good Dynamic Sitting Balance Ability Good Standing Balance and Reactions Static Standing Balance Ability Fair Dynamic Standing Balance Ability Fair Device Used FWW M5 PT-IP Objective Assessments Start: 07/25/21 07:53 Freq: NEEDED Status: Active Protocol: Document 07/25/21 11:05 AW (Rec: 07/25/21 13:10 [id number]) Orientation Orientation/Cognition Level of Alertness Confusional State Orientation Name,Place,Situation Language Function Ability Latvian as Second Language Safety Awareness Decreased Safety Awareness Memory Description Short Term Impaired Gross Range of Motion Lower Extremity ROM Assessment Within Functional Limits Strength Lower Extremity Strength Assessment Bilaterally Impaired Hip 4/5 Knee extension 4+/5; flexion 4-/5 Ankle 4/5 Sensation Assessment Sensation Gross Sensation WNL Muscle Tone Muscle Tone WNL Yes M6 PT-IP Treatment Start: 07/25/21 07:53 Freq: NEEDED Status: Active Protocol: Document 07/25/21 11:05 AW (Rec: 07/25/21 13:10 [id number]) Physical Therapy Treatment Education Education Provided Safety Other Treatments Other Treatment Performed Discussed recommendation for use of FWW and pt was agreeable. M7 PT-IP Assessment and Plan Start: 07/25/21 07:53 Freq: NEEDED Status: Active Protocol: Document 07/25/21 11:05 AW (Rec: 07/25/21 13:10 [id number]) PT Summary Assessment and Plan Potential Rehabilitation Potential Fair Status of Condition at Evaluation Evolving Summary Impairments Pain,Strength,Balance, Cognition,Bed Mobility, Transfers,Gait,Activity Tolerance Assessment Summary Bobby is a 76 yo woman with apparent metastatic malignancy (lung primary) who was admitted with mental status changes and drastic decrease in strength. She is independent at baseline but has required assist for ADL's and has begun cruising furniture in the past few weeks. On assessment, pt presents with impaired BLE strength, poor safety awareness, and needing cues/ assist for safe use of FWW. Pt has assist from her two daughters at home and will be safe to discharge with 24/7 assist. She would benefit from use of FWW and home health therapies to evaluate her environment, reduce falls risk , and improve strength/ mobility independence. Goals Bed Mobility Goal Independent Transfer Goal Standby Assistance,Front Wheeled Walker Gait Goal Standby Assistance,Front Wheel Walker Gait Distance 75 Other Goals - up/down 10 steps with unilateral rail SBA Days to Meet Goals 5 Frequency of Treatment Frequency Of Treatment Once a Day Treatment Plan Physical Therapy Treatment Plan Bed Mobility Training,Transfer Training,Gait Training, Therapeutic Exercise,Balance Retraining,Discharge Planning, Hot or Cold Pack,Neuromuscular Re-ed Other Recommendations and Next Treatment stair training; continue gait Focus training with FWW - preferably with daughter present to improve carryover. Precautions Other Precautions falls risk Recommendations To Nursing Amount of Assist Needed 1 Person Assist Discharge Recommendations PT Discharge Recommendations Home with 24/7 Assist Available,Home Health Equipment Needed for Home Before FWW Discharge Transportation Needs at Discharge Private Vehicle
[2021-07-25] MEDS: ACETAMINOPHEN 325 MG TABLET 650 MG PO ×2 (12:48→19:44)
--- NOTE | 2021-07-25 13:27 | CM.DANOTE ---
Addendum entered by CHERRY Quiroga 07/25/21 15:52: ADD: Per RN, calling Dtr to arrive bedside for CG training with PT towards d/c home this evening and feels HH needed and will alert MD. SW made referral to [facility] based on Vendor Calendar and faxed referral along with F2F and MD orders for plan of home with HH tonight via Dtr POV. BF Original Note: Patient is a 76 yo female who was admitted on 07/24/21 for Failure to Thrive. Pt has [facility] for insurance and her PCP is Dr. Jamison Lux. EMR was reviewed. Per MD, pt admitted for hilar mass consistent with lung CA with mets and already had a scheduled ultrasound guided biopsy later this month from outpt setting with PCP. Per PT, pt resides at home in [place] with her two adult Dtrs/DPOAs and pt has been independent with ADLs and ambulation without DME up until the past couple weeks and has required assist. Dtrs confirmed that they work outside the home but provide 24/7 between the two of them. PT recommending FWW for stability and may benefit from HH. SW met bedside briefly and explained role and pt confirmed above and states she is unsure if HH needed at this time and would like to see how she does with more PT and depending on her progress while here. SW placed FWW order for PT to issue FWW for home use at d/c. Plan: SW to follow closely for further PT towards determining home with Dtrs and r/o HH. 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 No Advance Directives on File No History Provided By Patient,Medical Record Has Patient been admitted in last 30 No days? Prior Living Arrangements House Household Members children Type of transporation used prior to Relies on Others admit Comment From home with two Dtrs Independent with ADL's Yes Is patient alert and oriented? Yes Needs Assistance With Managing Medications,Home Chores / Shopping Caregiver for Another No Patient/Family Preference Home with Home Health Comment r/o HH pending further PT Barriers to Discharge No Discharge Plan Home Transportation Arrangement Dtrs can provide transport at d/c Referrals Initiated None needed Additional Comment Follow to r/o HH Whiteboard Updated in Patient Room with Yes name and ext. # of Rope Making Machine Operator Review Status In Process Please Provide Date Initial DC 07/25/21 Assessment Was Performed Next Review Type Continued Stay Review
--- NOTE | 2021-07-25 17:19 | PT.IPTN ---
Physical Therapy Treatment Note M2 PT-IP Current Condition Start: 07/25/21 07:53 Freq: NEEDED Status: Active Protocol: Document 07/25/21 11:05 AW (Rec: 07/25/21 13:10 AW [id number]) Physical Therapy Current Condition Current Condition Evaluation Date 07/25/21 Treatment Diagnosis metastatic malignancy, impaired mobility and gait Onset Date a few weeks M3 PT-IP Subjective Start: 07/25/21 07:53 Freq: NEEDED Status: Active Protocol: Document 07/25/21 17:19 AW (Rec: 07/25/21 17:26 AW [id number]) Subjective Physical Therapy Visit Type Type Treatment Note Visit Start Time 17:04 Visit Stop Time 17:19 Total Visit Minutes 15 Notes Pt's daughter and granddaughter are in the room, preparing for discharge. Daughter is concerned about taking care of the pt at home but granddaughter is reassuring. Physical Therapy Visit Comments Patient Comments Pt understands she needs increased support at home. Patient Goals Return home with family support M4 PT-IP Mobility and Gait Start: 07/25/21 07:53 Freq: NEEDED Status: Active Protocol: Document 07/25/21 11:05 AW (Rec: 07/25/21 13:10 AW [id number]) PT-Bed Mobility Assessment Supine to Sit Supine to Sit Contact Guard Assistance Scooting Scooting to Edge of Bed Contact Guard Assistance PT-Transfer Assessment Sit to and From Stand Sit to and from Stand Contact Guard Assistance,Use of Upper Extremities Equipment Transfer Assistive Device Gait Belt,Front Wheeled Walker Orthotic/Prosthetic Devices or Brace: No Transfers Transfer Destination Chair Transfer Technique ambulated with FWW Transfer Ability Level of Assist Contact Guard Assistance Comments Mobility Comments Pt was lying in bed as PT arrived. SpO2 95% on 1.5 L/min via NC. RN advised a room air trial. PT removed O2 and SpO2 was 94% at rest. Pt sat up EOB CGA. She stood and PT attempted to assess gait without device but pt quickly reached for the walker set on her left side. If there's something there, I will hold on to it. Pt needed cues to keep the walker close to her trunk and min/mod A to navigate obstacles in the tight hospital room environment. She walked 8 feet and sat on the chair with cues to use UE's to slow her descent. WOB had increased and pt complained of SOB. SpO2 was 88% on room air. PT cued breathing in through nose. SpO2 did not recover after four minutes. PT reapplied O2 and SpO2 recovered to 93%. Pt stood and ambulated 30 feet in the room with FWW min A before sitting on the chair again. SpO2 was stable 92-94% on 1.5 L/min. Pt was left in the chair with call light and tray table in reach. Gait Assessment Gait Gait Assistance Required: Minimum Assistance,Moderate Assistance,1 Person Assist Distance (Feet) 30 Assistive Devices Assistive Device Gait Belt,Front Wheeled Walker Orthotic/Prosthetic Devices or Brace: No Gait Deviations General Gait Pattern Decreased Stride Length, Decreased Feet Clearance, Flexed Trunk,Lateral Trunk Lean Factors Limiting Gait Function Factors Limiting Gait Function Decreased Activity Tolerance, Decreased Strength, Incoordination,Poor Balance, Poor Safety Awareness, Respiratory Distress Comments Gait Comments See mobility comments for details. Pt was noted to lean to the right in sitting as well as during gait. She needed min/mod assist to navigate obstacles. Stair Climbing Assessment Comments Stair Climbing Comments Not assessed due to respiratory status. PT-Balance Assessment Sitting Balance and Reactions Static Sitting Balance Ability Good Dynamic Sitting Balance Ability Good Standing Balance and Reactions Static Standing Balance Ability Fair Dynamic Standing Balance Ability Fair Device Used FWW M5 PT-IP Objective Assessments Start: 07/25/21 07:53 Freq: NEEDED Status: Active Protocol: Document 07/25/21 11:05 AW (Rec: 07/25/21 13:10 AW [id number]) Orientation Orientation/Cognition Level of Alertness Confusional State Orientation Name,Place,Situation Language Function Ability Turkish as Second Language Safety Awareness Decreased Safety Awareness Memory Description Short Term Impaired Gross Range of Motion Lower Extremity ROM Assessment Within Functional Limits Strength Lower Extremity Strength Assessment Bilaterally Impaired Hip 4/5 Knee extension 4+/5; flexion 4-/5 Ankle 4/5 Sensation Assessment Sensation Gross Sensation WNL Muscle Tone Muscle Tone WNL Yes M6 PT-IP Treatment Start: 07/25/21 07:53 Freq: NEEDED Status: Active Protocol: Document 07/25/21 17:19 AW (Rec: 07/25/21 17:26 AW [id number]) Physical Therapy Treatment Education Education Provided Safety Equipment Issued Equipment Type and Company FWW from [employer] per MD order Other Treatments Other Treatment Performed Pt's granddaughter is a home care worker and is familiar with the gait belt. She is able to don and doff without cues. Daughter and granddaughter understand equipment recommendations including FWW (dispensed), tub transfer bench, hand held shower, BSC and plan to obtain items from [facility] on Monday. M7 PT-IP Assessment and Plan Start: 07/25/21 07:53 Freq: NEEDED Status: Active Protocol: Document 07/25/21 17:19 AW (Rec: 07/25/21 17:26 AW [id number]) PT Summary Assessment and Plan Summary Assessment Summary Pt's family clarify that only one daughter is available to assist at home right now and she works outside the home. Pt 's granddaughter states she and three other grandchildren are prepared to fill any gaps and they feel confident they can help take care of the pt at home. They are grateful for referral to home health therapies. Afternoon session is considered an extension of initial evaluation to review equipment needs and assess caregiver's abilities which are adequate. Goals Bed Mobility Goal Independent Transfer Goal Standby Assistance,Front Wheeled Walker Gait Goal Standby Assistance,Front Wheel Walker Gait Distance 75 Other Goals - up/down 10 steps with unilateral rail SBA Days to Meet Goals 5 Frequency of Treatment Frequency Of Treatment Once a Day Treatment Plan Physical Therapy Treatment Plan Bed Mobility Training,Transfer Training,Gait Training, Therapeutic Exercise,Balance Retraining,Discharge Planning, Hot or Cold Pack,Neuromuscular Re-ed Other Recommendations and Next Treatment stair training; continue gait Focus training with FWW - preferably with daughter present to improve carryover. Precautions Other Precautions falls risk Recommendations To Nursing Amount of Assist Needed 1 Person Assist Discharge Recommendations PT Discharge Recommendations Home with 10/10 Assist Available,Home Health Equipment Needed for Home Before FWW (dispensed) and other Discharge items as above Transportation Needs at Discharge Private Vehicle
--- NOTE | 2021-07-25 17:34 | P.DS_ITS ---
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 Past few months she has been unsteady on her feet but denies falling in the past year. Patient states she has lost 27 lb over the past few months. Reports various pain in her sides, abdomen, back and hips. She denies new cough or change in respiratory status. Also denies fevers or night sweats. On March 18, 2021 she had outpatient x-ray which showed a right hilar mass versus pneumonia. It seems she was treated with antibiotics at the time. Back in 2012 she had upper lobe lung nodules and a PET scan was done which shows a low FDG uptake. A chest abdomen and pelvis CT today showed concerning findings of large right hilar mass consistent with primary lung CA, finding suspicious for pleural metastases in right upper lobe, right hilar and mediastinal lymphadenopathy, bilateral adrenal masses consistent with Mets, and a mass in the lateral aspect of the anterior chest, filling defect in right lower lobe bronchus as well as incidental 3.4 cm infrarenal abdominal aortic aneurysm. Additional findings in the ED were elevated WBC 21 K without significant left shift, normal hemoglobin, normal electrolytes BUN and creatinine and LFTs. P rocalcitonin normal. Her INR was 3.0 on warfarin therapy. Her UA showed few bacteria and leukocytes and culture sent. She denies dysuria symptoms. Discharge Providers Provider Date of admission: 07/24/21 14:09 Discharge Date: 07/25/21 Primary care physician: Jamison Lux MD Consults: 07/24/21 18:34 Consult to Physical Therapy Evaluate & Treat Comment: unsteady, no fall Physician Instructions: Evaluate and Treat 07/25/21 13:22 Consult to Home Health Routine Comment: Hilar mass for lung CA with mets Reason For Exam: Set up FWW for home use at discharge. Discharge provider: Adrián Barahona MD Summary Hospital Course Discharge Diagnosis: 1. Metastatic lung malignancy 2. Leukocytosis, stress/inflammatory/malignancy related 3. History of thromboembolism 4. Warfarin anticoagulation 5. Severe protein calorie malnutrition Hospital Course: 68-year-old female heavy smoker presenting with general malaise, loss of appetite, recent severe weight loss and unsteady gait.? 1. Metastatic malignancy likely lung primary -CT findings of large right hilar mass with pleural metastases, mediastinal and hilar adenopathy, anterior chest wall metastases and adrenal metastases highly suspicious for stage IV lung CA -on exam she has firm irregular mass in the right axilla which could potentially be biopsied, she is actually set up later this month for ultrasound-guided biopsy which was scheduled through PCP office -received supportive IV hydration in ED x2 L, can Hep-Lock IV -will need outpatient Oncology follow-up BRIGIDO to determine best course of action going forward, may need diagnostic bronchoscopy or CT-guided needle biopsy of right lung mass -warfarin will need to be managed prior to biopsy -has various non acute pain complaints in back, abdomen, hips which is currently being relieved by CBD gummies 2. Unsteady gait -PT saw patient prior to discharge, provided walker -referral for home health services 3. Chronic anticoagulation for history of thromboembolism -INR 3.0, continue warfarin 2.5 mg q.p.m. -has INR recheck at clinic tomorrow 4. Leukocytosis -probably stress/inflammatory related, patient without fever or appearance of a serious infection, urine culture sent although not having urinary symptoms -urine culture negative -antibiotics discontinued 5. Severe protein calorie malnutrition with reported 17 lb weight loss in recent weeks secondary to malignancy -continue Ensure supplements Exam Vital Signs (past 8 hours): - 07/25/21 10:01 07/25/21 11:00 07/25/21 12:00 Temperature 97.0 F L Pulse Rate 97 H Respiratory Rate 18 Blood Pressure 117/69 Pulse Oximetry 98 95 92 07/25/21 15:00 Temperature 98.3 F Pulse Rate 94 H Respiratory Rate 18 Blood Pressure 124/70 Pulse Oximetry 95 Oxygen Delivery Method Room Air Oxygen Flow Rate 0 Objective Labs Result Diagrams: 07/25/21 05:35 07/24/21 08:22 Labs: Laboratory Results - last 24 hr 07/25/21 05:35 WBC 24.1 H RBC 4.21 Hgb 11.6 L Hct 35.3 L MCV 83.8 MCH 27.5 MCHC 32.8 RDW 15.3 H Plt Count 402 H Neut % (Auto) Not Reportable Lymph % (Auto) Not Reportable [place] % (Auto) Not Reportable Eos % (Auto) Not Reportable Baso % (Auto) Not Reportable Lymph # (Auto) Not Reportable [place] # (Auto) Not Reportable Baso # (Auto) Not Reportable Total Counted 100 Seg Neutrophils % 71.0 H Band Neutrophils % 7.0 Lymphocytes % (Manual) 13.0 L Monocytes % (Manual) 2.0 Eosinophils % (Manual) 6.0 H Basophils % (Manual) 1.0 Neutrophils # (Manual) 21361 H RBC Morphology Normal morphology PFSH Medical History Basal cell carcinoma of nose (2009) Coagulation disorder DVT (deep venous thrombosis) Surgical History History of colonoscopy with polypectomy (08/17/11) Family History Brother Age: 80 Cancer Hypertension Lung cancer Prostate cancer Mother Stroke History of blood clots Sister Age: 83 Dementia Hypertension Father Heart attack Grandfather Concussion Social History household members: children Smoking Status: Current every day smoker alcohol intake: never Discharge Plan Discharge Plan Patient Disposition: Home Provider Discharge Comment: Your CT showed findings of right lung cancer which has spread to other areas. Please coordinate with Dr Lux's office to get referral to oncology as soon as possible. Hold your warfarin dose for tonight since INR is a little on high side and you got antibiotics. I do not think you have an active infection. Try to keep up nutrition and fluids. Continue Ensure supplements. We have initiated home health referral. Nursing Discharge Comment: Please have PT give pt FWW to take home. Discharge orders & Medications Prescriptions: Continued acetaminophen [Tylenol Extra Strength] 500 MG tablet 500 - 1,000 mg PO Q4H PRN (Reason: Pain (Scale Score 1-3)) Qty: 0 0RF rosuvastatin [Crestor] 20 mg tablet 20 mg PO DAILY Qty: 90 3RF warfarin 2.5 mg tablet 2.5 mg PO SEE INSTRUCTIONS 0RF Rx Instructions: Take 2.5mg daily, or as directed. Follow up/Referrals: Jamison Lux MD [Primary Care Provider] - Diet/Activity/Treatments Diet: Regular Discharge Data Primary Care Provider: Jamison Lux Attending Provider: Adrián aBrahona VTE Deep Vein Thrombosis/Pulmonary Embolism Present on Admission: No
[2021-07-25] MEDS: ATORVASTATIN 20 MG TABLET 40 MG PO (20:26)
[2021-07-26] VITALS (7 sets, daily range): BP systolic 123; BP diastolic 66; PULSE 93; RESP 16; TEMP 36.2; O2SAT 91–94
[2021-07-26 04:52] LABS: INR 3.9 (0.9-1.3); Prothrombin Time 45.4 SECONDS (10.1-12.7)
[2021-07-26 04:58] LABS: Hematocrit 36.6 % (36-46); Hemoglobin 11.8 g/dL (12.0-16.0); Mean Corpuscular HGB Conc 32.3 % (30-36); Mean Corpuscular Hemoglobin 27.1 PG (26-34); Platelet Count 431 X10^3/uL (150-400); Red Blood Cell Count 4.36 X10^6/uL (4.0-5.2); Red Cell Distribution Width 15.4 % (11.6-14.8); White Blood Cell Count 24.8 X10^3/uL (4.5-11.0)
[2021-07-26 05:02] LABS: Add Manual Diff / Slide Review YES
[2021-07-26 05:17] LABS: BUN Creatinine Ratio 13.8 (6-22); Blood Urea Nitrogen 9 mg/dL (7-17); Calcium 9.1 mg/dL (8.4-10.2); Carbon Dioxide 27 mmol/L (22-32); Chloride 104 mmol/L (98-107); Estimated Glomerular Filt Rate > 60 mL/min (>60); Glucose 93 mg/dL (80-110); HEMOLYSIS < 15 (0-50); Potassium 4.1 mmol/L (3.4-5.1); Sodium 138 mmol/L (137-145)
[2021-07-26 06:40] LABS: Neutrophils Absolute Manual 19096 /uL (3000-5900); Plasma Cells 1; Total Cells Counted 100
[2021-07-26 06:41] LABS: Anisocytosis 1+
--- NOTE | 2021-07-26 10:49 | CM.DPC ---
Addendum entered by CHERRY Quiroga 07/26/21 12:55: ADD: KERA met bedside with pt and also spoke to pt's Granddtr inlaw Yara Casper ([phone]) who confirms she is a caregiver for work and very comfortable and skilled in caregiving and will be the one coordinating pt's care at d/c and transport home today and they plan to have 2 strong family members to assist at d/c. Provided brochure for [facility], [facility], and dieticians recommendations to pt and Yara for d/c. Answered questions regarding hospital bed and calling [facility] for assist with pwk needed and PCP in attempt at getting hospital bed through insurance and likely need to rent one while waiting for the process to determine if insurance will cover the cost. Pt and Yara very appreciative and agreeable with d/c home today with family assist and [facility]. BF Original Note: DCP Discharge Home with HH Per PT, completed CG training with pt, Dtr, Granddtr last night and issued FWW and family plans to get additional DME at [facility] on tomorrow and they feel between Dtr and 3 grandkids they can manage pt safely at home and very agreeable with HH. KERA faxed d/c summary, F2F, and MD orders to [facility] this morning and per RN pt seems to be on room air now and will confirm she does not need home oxygen at discharge today through [facility] home assessment. Plan: Patient to d/c home via family POV and new [facility] to follow after discharge. CHERRY Quiroga
--- NOTE | 2021-07-26 10:49 | DIET.CONS ---
Dietary Consultation Note Admission Date: 07/24/2021 14:09 Assessment: 76y F admitted for dizziness, failure to thrive c imaging concerning for primary lung cancer c metastatic spread screened by RD for low BMI and low MNA (5). Pt endorses unintended weight loss x2mo c associated low appetite. Pt to d/c and f/u c oncology for tx options. Ht: 165.1 cm Wt: 47.5 kg (-10.4% in 2mo, severe) BMI: 17.4 UBW: 54kg Last BM: 07/24/21 (07/24/21 16:18) MNA: 5 Abdirizak Score: 16 Diet: 07/25/21 Breakfast General (Regular) Diet Diet Modifications: Nutrition Percent Meal Consumed 5 07/26/21 09:50 Percent Meal Consumed 75% 07/25/21 18:00 Percent Meal Consumed 25% 07/25/21 09:24 Percent Meal Consumed 25% 07/24/21 18:17 Labs: RBC 4.36 X10^6/uL (4.0-5.2) 07/26/21 04:25 Hgb 11.8 g/dL (12.0-16.0) L 07/26/21 04:25 Hct 36.6 % (36-46) 07/26/21 04:25 Creatinine 0.65 mg/dL (0.52-1.04) 07/26/21 04:25 Lactate 1.2 mmol/L (0.7-2.1) 07/24/21 08:22 Nutrition Diagnosis: Severe Acute Protein Calorie Malnutrition r/t metastatic cancer hypercatabolism c low appetite aeb -10.4% unintentional wt loss in 2 mo (severe), BMI 17.4 (severe), imaging shows primary lung cancer c mets, pt scheduled for tx plan c oncology. Interventions: 1. Recc initiation of high pro/high kcal MNT to preserve pts current body weight and encourage LBM preservation. 2. Recc ONS Ensure Enlive bid in addition to meals pt can tolerate c avoidance of diet foods, encourage full fat options and easy to eat protein like nut butters and eggs. EER: 70-80g PRO (1.3-1.6g/kg per PCM), 1600-1700kcals (35kcal/kg per PCM) Monitoring/Evaluations: ONS tolerance Electronically Signed by: Natividad Arellano 07/26/21 10:49 Clinical Dietitian [address] [address]
--- NOTE | 2021-07-26 10:51 | PT.IPTN ---
Physical Therapy Treatment Note M2 PT-IP Current Condition Start: 07/25/21 07:53 Freq: NEEDED Status: Active Protocol: Document 07/25/21 11:05 AW (Rec: 07/25/21 13:10 AW [id number]) Physical Therapy Current Condition Current Condition Evaluation Date 07/25/21 Treatment Diagnosis metastatic malignancy, impaired mobility and gait Onset Date a few weeks M3 PT-IP Subjective Start: 07/25/21 07:53 Freq: NEEDED Status: Active Protocol: Document 07/26/21 10:51 AW (Rec: 07/26/21 12:51 AW [id number]) Subjective Physical Therapy Visit Type Type Treatment Note Visit Start Time 10:24 Visit Stop Time 10:51 Total Visit Minutes 27 Notes Pt's [id number] is in the room for continued caregiver training. 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 Patient Goals Return home with family support Therapy Pain Assessment Pain When Pain Assessed During Mobility Pain Present Pain Present Denied Pain M4 PT-IP Mobility and Gait Start: 07/25/21 07:53 Freq: NEEDED Status: Active Protocol: Document 07/26/21 10:51 AW (Rec: 07/26/21 12:51 AW [id number]) PT-Bed Mobility Assessment Supine to Sit Supine to Sit Minimal Assistance,1 Person Assistance,Bedrails Scooting Scooting to Edge of Bed Minimal Assistance PT-Transfer Assessment Sit to and From Stand Sit to and from Stand Minimal Assistance,1 Person Assistance,Use of Upper Extremities Equipment Transfer Assistive Device Gait Belt,Front Wheeled Walker Orthotic/Prosthetic Devices or Brace: No Transfers Transfer Destination Chair Transfer Technique ambulated with FWW Transfer Ability Level of Assist Minimal Assistance,1 Person Assistance,Use of Upper Extremities Comments Mobility Comments Pt was lying in bed as PT arrived. Her granddaughter in law, Yara, was able to provide appropriate min A for supine to sit and to don the gait belt. Caregiver assisted min A for pt to stand and gave appropriate cues and hand over hand assist for hands to walker handles. Pt ambulated around the foot of the bed as caregiver provided min/mod A. Pt complained of increased fatigue and was instructed to sit EOB. She sat two minutes, complaining of lightheadedness ; BP was stable. Pt reported feeling very weak and began to lean posteriorly in sitting. She was safely assisted to supine by her caregiver who then assisted her to sit up again using alcantara points of control appropriately. She was unable to maintain unsupported sitting without assist and caregiver assisted pt back to supine on the bed, providing mod A for repositioning as pt bridged her hips. Pt was left with call light in reach. Gait Assessment Gait Gait Assistance Required: Minimum Assistance,Moderate Assistance,1 Person Assist Distance (Feet) 20 Assistive Devices Assistive Device Gait Belt,Front Wheeled Walker Orthotic/Prosthetic Devices or Brace: No Gait Deviations General Gait Pattern Decreased Stride Length, Decreased Feet Clearance, Flexed Trunk,Lateral Trunk Lean Factors Limiting Gait Function Factors Limiting Gait Function Decreased Activity Tolerance, Decreased Strength, Incoordination,Poor Balance, Poor Safety Awareness, Respiratory Distress Comments Gait Comments Pt continues to require min/ mod assist for gait with FWW especially to navigate obstacles. Caregiver used the gait belt and directed pt safely with appropriate cues. Stair Climbing Assessment Comments Stair Climbing Comments Not assessed. Caregiver states her and other family members plan to assist pt up 2 steps into the house. Family are setting up a bed on entry level civil engineer so pt will not need to access second floor. PT-Balance Assessment Sitting Balance and Reactions Static Sitting Balance Ability Fair Dynamic Sitting Balance Ability Fair Standing Balance and Reactions Static Standing Balance Ability Fair Dynamic Standing Balance Ability Fair Device Used FWW M5 PT-IP Objective Assessments Start: 07/25/21 07:53 Freq: NEEDED Status: Active Protocol: Document 07/25/21 11:05 AW (Rec: 07/25/21 13:10 AW [id number]) Orientation Orientation/Cognition Level of Alertness Confusional State Orientation Name,Place,Situation Language Function Ability Mauritian as Second Language Safety Awareness Decreased Safety Awareness Memory Description Short Term Impaired Gross Range of Motion Lower Extremity ROM Assessment Within Functional Limits Strength Lower Extremity Strength Assessment Bilaterally Impaired Hip 4/5 Knee extension 4+/5; flexion 4-/5 Ankle 4/5 Sensation Assessment Sensation Gross Sensation WNL Muscle Tone Muscle Tone WNL Yes M6 PT-IP Treatment Start: 07/25/21 07:53 Freq: NEEDED Status: Active Protocol: Document 07/26/21 10:51 AW (Rec: 07/26/21 12:51 AW [id number]) Physical Therapy Treatment Education Education Provided Safety Other Treatments Other Treatment Performed Continued caregiver training as above. M7 PT-IP Assessment and Plan Start: 07/25/21 07:53 Freq: NEEDED Status: Active Protocol: Document 07/26/21 10:51 AW (Rec: 07/26/21 12:51 AW [id number]) PT Summary Assessment and Plan Potential Rehabilitation Potential Fair Status of Condition at Evaluation Evolving Summary Assessment Summary Bobby is weaker today and needs assist to maintain sitting EOB. She is able to ambulate short distances with FWW min/mod A. She will have 24/7 assist at home. Caregiver present today continued with training and is confident she will be able to train other caregivers. Family is working to obtain BSC, tub transfer bench, hospital bed, etc. They declined stair training, stating grandsons will be able to assist or lift the pt into the house. 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 Pt will required home health therapies to optimize the home environment and work on strength, gait, and transfers. Goals Bed Mobility Goal Independent Transfer Goal Standby Assistance,Front Wheeled Walker Gait Goal Standby Assistance,Front Wheel Walker Gait Distance 75 Other Goals - up/down 10 steps with unilateral rail SBA Days to Meet Goals 5 Frequency of Treatment Frequency Of Treatment Once a Day Treatment Plan Physical Therapy Treatment Plan Bed Mobility Training,Transfer Training,Gait Training, Therapeutic Exercise,Balance Retraining,Discharge Planning, Hot or Cold Pack,Neuromuscular Re-ed Other Recommendations and Next Treatment stair training; continue gait Focus training with FWW - preferably with daughter present to improve carryover. Precautions Other Precautions falls risk Recommendations To Nursing Amount of Assist Needed 1 Person Assist,2 Person Assist Discharge Recommendations PT Discharge Recommendations Home with 24/7 Assist Available,Home Health Equipment Needed for Home Before FWW (dispensed) and other Discharge items as above Transportation Needs at Discharge Private Vehicle
[2021-07-26] MEDS: ACETAMINOPHEN 325 MG TABLET 650 MG PO (11:00)
--- NOTE | 2021-07-26 12:55 | PM.DS.1 ---
History of Present Illness History of Present Illness Date Patient Seen: 07/26/21 Time Patient Seen: 12:55 Chief complaint: States failure to thrive, dizzy x 3 months Narrative: Patient is 76-year-old female until recently a heavy smoker, on warfarin for the past 40 years for history of recurrent thromboembolism, presented to the ED with complaints of loss of appetite, nausea, dizziness and general malaise.? Past few months she has been unsteady on her feet but denies falling in the past year.? Patient states she has lost 27 lb over the past few months.? Reports various pain in her sides, abdomen, back and hips.? She denies new cough or change in respiratory status.? Also denies fevers or night sweats.? On March 18, 2021 she had outpatient x-ray which showed a right hilar mass versus pneumonia.? It seems she was treated with antibiotics at the time.? Back in 2012 she had upper lobe lung nodules and a PET scan was done which shows a low FDG uptake. A chest abdomen and pelvis CT today showed concerning findings of large right hilar mass consistent with primary lung CA, finding suspicious for pleural metastases in right upper lobe, right hilar and mediastinal lymphadenopathy, bilateral adrenal masses consistent with Mets, and a mass in the lateral aspect of the anterior chest, filling defect in right lower lobe bronchus as well as incidental 3.4 cm infrarenal abdominal aortic aneurysm. Additional findings in the ED were elevated WBC 21 K without significant left shift, normal hemoglobin, normal electrolytes BUN and creatinine and LFTs.? Procalcitonin normal.? Her INR was 3.0 on warfarin therapy.? Her UA showed few bacteria and leukocytes and culture sent.? She denies dysuria symptoms. Discharge Providers Provider Date of admission: 07/24/21 14:09 Discharge Date: 07/26/21 Primary care physician: Jamison Lux MD Consults: 07/24/21 18:34 Consult to Physical Therapy Evaluate & Treat Comment: unsteady, no fall Physician Instructions: Evaluate and Treat 07/25/21 13:22 Consult to Home Health Routine Comment: Hilar mass for lung CA with mets Reason For Exam: Set up FWW for home use at discharge. 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 Metastatic lung malignancy 2. Leukocytosis, stress/inflammatory/malignancy related 3. History of thromboembolism 4. Warfarin anticoagulation 5.? Severe protein calorie malnutrition Hospital Course: 68-year-old female heavy smoker presenting with general malaise, loss of appetite, recent severe weight loss and unsteady gait.? 1. Metastatic malignancy likely lung primary -CT findings of large right hilar mass with pleural metastases, mediastinal and hilar adenopathy, anterior chest wall metastases and adrenal metastases highly suspicious for stage IV lung CA -on exam she has firm irregular mass in the right axilla which could potentially be biopsied, she is actually set up later this month for ultrasound-guided biopsy which was scheduled through PCP office -received supportive IV hydration in ED x2 L but did not require further IV fluids. -will need outpatient Oncology follow-up BRIGIDO to determine best course of action going forward, may need diagnostic bronchoscopy or CT-guided needle biopsy of right lung mass -warfarin will need to be managed prior to biopsy as an outpatient. -has various non acute pain complaints in back, abdomen, hips which is currently being relieved by CBD gummies 2. Unsteady gait -PT saw patient prior to discharge, provided walker and ultimately discharged home. -referral for home health services 3. Chronic anticoagulation for history of thromboembolism -INR 3.0, continue warfarin 2.5 mg q.p.m. -has INR recheck at clinic tomorrow 4. Leukocytosis -probably stress/inflammatory related, patient without fever or appearance of a serious infection, urine culture sent although not having urinary symptoms -urine culture negative -antibiotics discontinued at the time of discharge. 5.? Severe protein calorie malnutrition with reported 17 lb weight loss in recent weeks secondary to malignancy -continue Ensure supplements Exam Vital Signs (past 8 hours): - 07/26/21 07:34 07/26/21 07:40 07/26/21 08:37 Temperature 97.2 F L Pulse Rate 93 H Respiratory Rate 16 Blood Pressure 123/66 Pulse Oximetry 91 91 93 07/26/21 11:00 Temperature Pulse Rate Respiratory Rate Blood Pressure Pulse Oximetry 93 Oxygen Delivery Method Room Air Oxygen Flow Rate 0 Narrative Exam Narrative: General:? She is thin pleasant elderly female in no acute distress HEENT:? Nontraumatic, anicteric, pupils equal and reactive, oropharynx unremarkable Neck:? No cervical or supraclavicular lymphadenopathy Lungs:? Clear to auscultation Heart:? Normal S1 and S2, regular rate and rhythm, without murmur Back:? There is a hard soft tissue lump on the medial right upper back Breasts:? There is right axillary firm irregular axillary mass, no lump in right or left breast tissue Abdomen:? Nontender, no abdominal mass, no HSM Extremities:? No cyanosis or edema Neurological: Pleasant, not confused, normal affect and speech Objective Labs Result Diagrams: 07/26/21 04:25 07/26/21 04:25 Labs: Laboratory Results - last 24 hr 07/26/21 07/26/21 07/26/21 04:25 04:25 04:25 WBC 24.8 H RBC 4.36 Hgb 11.8 L Hct 36.6 MCV 84.0 MCH 27.1 MCHC 32.3 RDW 15.4 H Plt Count 431 H Neut % (Auto) Not Reportable Lymph % (Auto) Not Reportable Graham % (Auto) Not Reportable Eos % (Auto) Not Reportable Baso % (Auto) Not Reportable Lymph # (Auto) Not Reportable Graham # (Auto) Not Reportable Baso # (Auto) Not Reportable Total Counted 100 Seg Neutrophils % 68.0 Band Neutrophils % 9.0 H Lymphocytes % (Manual) 12.0 L Monocytes % (Manual) 4.0 Eosinophils % (Manual) 5.0 H Basophils % (Manual) 1.0 Neutrophils # (Manual) 99386 H Plasma Cells 1 RBC Morphology See below Anisocytosis 1+ H PT 45.4 H D INR 3.9 H Sodium 138 Potassium 4.1 Chloride 104 Carbon Dioxide 27 BUN 9 Creatinine 0.65 Estimated GFR > 60 BUN/Creatinine Ratio 13.8 Glucose 93 Calcium 9.1 PFSH Medical History Basal cell carcinoma of nose (2009) Coagulation disorder DVT (deep venous thrombosis) Surgical History History of colonoscopy with polypectomy (08/17/11) Family History Brother Age: 80 Cancer Hypertension Lung cancer Prostate cancer Mother Stroke History of blood clots Sister Age: 83 Dementia Hypertension Father Heart attack Grandfather Concussion Social History household members: children Smoking Status: Current every day smoker alcohol intake: never Discharge Plan Discharge Plan Patient Disposition: Home Provider Discharge Comment: Your CT showed findings of right lung cancer which has spread to other areas. Please coordinate with Dr Lux's office to get referral to oncology as soon as possible. Hold your warfarin dose for tonight since INR is a little on high side and you got antibiotics. I do not think you have an active infection. Try to keep up nutrition and fluids. Continue Ensure supplements. We have initiated home health referral. Nursing Discharge Comment: Please have PT give pt FWW to take home. Discharge orders & Medications Prescriptions: Continued acetaminophen [Tylenol Extra Strength] 500 MG tablet 500 - 1,000 mg PO Q4H PRN (Reason: Pain (Scale Score 1-3)) Qty: 0 0RF rosuvastatin [Crestor] 20 mg tablet 20 mg PO DAILY Qty: 90 3RF warfarin 2.5 mg tablet 2.5 mg PO SEE INSTRUCTIONS 0RF Rx Instructions: Take 2.5mg daily, or as directed. Follow up/Referrals: Jamison Lux MD [Primary Care Provider] - Diet/Activity/Treatments Diet: Regular Visit Report/Discharge Packet Instructions: DI for Lung Cancer, DI for Urinary Tract Infection (UTI), DI for Failure to Thrive, DI for Muscle Weakness Discharge Data Primary Care Provider: Jamison Lux Attending Provider: Adrián Barahona VTE Deep Vein Thrombosis/Pulmonary Embolism Present on Admission: No
--- NOTE | 2021-07-26 17:50 | PC.NURSE ---
Pt is dressed and ready for discharge home with family. Belongings are packed up and she does not have an IV. Assisted Pt up to bedside commode to void prior to her drive home. Pt was able to transfer with minimal assist. Brief changed. Went over d/c instructions with Pt and Granddaughter-discussed d/c meds-no changes to prior med. list but reminded Pt that she is to not start back on her Warfarin until tomorrow. Discussed stroke education, encouraged fluid and food intake to help to build strength. Pt's granddaughter states they will be going to [employer] tomorrow to get the equipment they need and will follow up with oncology and new PCP. Pt and Granddaughter denied further question and Pt was taken out via w/c by RN MED SURG to POV with Granddaughter and all belongings.
== END 2021-07-26 17:56 | disposition home or self-care (01) ==
LOC: ED 13:23 → AC 14:10
PROVIDERS: Admitting Provider Internal Medicine; Emergency Provider Emergency Medicine; Family Provider Family Medicine; PCP Student in an Organized Health Care Education/Training Program; Referring Provider Emergency Medicine; Visit Provider Internal Medicine
DX: R91.8 Other nonspecific abnormal finding of lung field (principal); R93.89 Abnormal findings on diagnostic imaging of other specified body structures; E43 Unspecified severe protein-calorie malnutrition; D72.829 Elevated white blood cell count, unspecified; R26.81 Unsteadiness on feet; R63.4 Abnormal weight loss; R53.81 Other malaise; F17.210 Nicotine dependence, cigarettes, uncomplicated; Z86.718 Personal history of other venous thrombosis and embolism; Z79.01 Long term (current) use of anticoagulants; Z20.822 Contact with and (suspected) exposure to COVID-19
CPT/HCPCS: 36415; 71260; 74022; 74177; 80048; 81001; 83605; 84145; 84484; 85007; 85025; 85610; 87040; 87086; 87635; 93005; 93010; 94760; 94762; 96361; 96365; 96375; 96376; 97162; 97530; 97535; 99284; 99285; C9803; G0378; J0696; J2405; Q9967

== ENCOUNTER 2021-07-29 07:28 | Emergency (ER) | payer MEDICARE, SELFPAY ==
[2021-07-24 16:18] VITALS: BMI 17.4
--- NOTE | 2021-07-29 07:37 | ED_ITS ---
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 She is admitted to the hospital last week for UTI. She he was discharged on July 26. Then she says for the last 2 days she has had increasing left leg weakness. She is unable to walk. EMS also reports that her left arm is sometimes week as well. Her last known well is unknown. He EMS also reports that she is hypoxic and that a 80%, she is currently on 4 L of nasal cannula. She is not on home O2. Patient denies any facial droop or confusion. No chest pain no palpitations. She says that she is nauseous on no vomiting. No numbness tingling or weakness. Daughter states that she was diagnosed with pneumonia back in February she got a ntibiotics. Daughter says since then she has actually had gone downhill. All 4 weeks ago the 2 of them would walk together every day. 2 weeks ago patient says that she is no longer able to walk. She has had dizziness she has had intermittent nausea. She has progressively gotten weaker. However 2 days ago her left leg started getting much more weak. This morning daughter went to help her get onto the commode typically patient can put both arms around her neck well the daughter transfer spur. However this morning she was unable to lift her left arm and she could not get her left leg under her. She finally got into the bed. Were she said she felt a wave of hotness coming from her toes up daughter says that her eyes rolled in the back of her head and she shook all over for about 1 minute. He does not report any postictal activity and no urinary incontinence. Daughter called it a seizure. Related Data Home Medications Medication Instructions Recorded Confirmed acetaminophen 500 mg tablet 500 - 1,000 mg PO Q4H PRN #0 04/21/11 07/24/21 (Tylenol Extra Strength) warfarin 2.5 mg tablet 2.5 mg PO SEE INSTRUCTIONS tab 06/29/21 07/24/21 Previous Rx's Medication Instructions Recorded rosuvastatin 20 mg tablet (Crestor) 20 mg PO DAILY #90 tab 06/30/21 Allergies Allergy/AdvReac Type Severity Reaction Status Date / Time codeine Allergy Verified 07/29/21 10:01 Review of Systems Review of Systems Narrative: GENERAL: Denies chills, fatigue, malaise, fever, sweats, travel HEENT: Denies sinus pain, ear pain, sore throat, difficulty swallowing, neck pain RESPIRATORY: See HPI CARDIOVASCULAR: Denies chest pain, palpitations, orthopnea, edema GASTROINTESTINAL: + nausea, see HPI : Denies dysuria, frequency, incontinence, hematuria, urinary retention, flank pain. MUSCULOSKELETAL: Denies weakness, joint pain, or bony pain SKIN: No rash, no erythema, no pruritus NEUROLOGIC: See HPI PSYCHIATRIC: No concerning psychosocial issues. 12 point review of systems is negative except for those stated above and HPI Patient History Medical History Basal cell carcinoma of nose (2009) Coagulation disorder DVT (deep venous thrombosis) Surgical History History of colonoscopy with polypectomy (08/17/11) Family History Brother Age: 80 Cancer Hypertension Lung cancer Prostate cancer Mother Stroke History of blood clots Sister Age: 83 Dementia Hypertension Father Heart attack Grandfather Concussion Social History household members: children Smoking Status: Current every day smoker alcohol intake: never Smoking Status: Current every day smoker tobacco type: cigarettes Substance Use Type: does not use Exam Initial Vital Signs Initial Vital Signs: Vital Signs Temperature 98.5 F 07/29/21 07:45 GENERAL: Alert 76-year-old female appears weak HEENT: Head atraumatic,EOMI, pupils reactive, face symmetric, moist mucous membranes CARDIOVASCULAR: Regular rate and rhythm without murmurs, rubs or gallops. RESPIRATORY: Breath sounds equal bilaterally, no wheezes rales or rhonchi. ABDOMEN: Soft, nontender. Normoactive bowel sounds all 4 quadrants. No guarding or rebound. EXTREMITIES: Normal range of motion, no clubbing or edema. Neurovascularly intact NEUROLOGICAL: Alert and oriented x4. Attempts to lift left leg but unable to lift it off gurney. Left arm also week hand drift. Able to do bilateral ajiqwb-jo-gxhm good tzvn-it-tzbg with the right leg. No facial droop no change in sensation SKIN: Warm, dry, no laceration, no petechiae, no rashes or lesions. Course Orders Ordered: Discontinued Medications Dexamethasone (Dexamethasone 10 Mg/Ml Vial) 10 mg IV NOW ONE Stop: 07/29/21 09:02 Last Admin: 07/29/21 09:18 Dose: 10 mg Documented by: RIGOBERTO Sodium Chloride (Normal Saline 0.9%) 1,000 mls @ 150 mls/hr IV CONT KAILA Last Admin: 07/29/21 10:52 Dose: 150 mls/hr Documented by: RIGOBERTO Levetiracetam 1,000 mg/ Sodium (Chloride) 110 mls @ 440 mls/hr IV NOW ONE Stop: 07/29/21 09:02 Last Infusion: 07/29/21 09:39 Dose: 0 mls/hr Documented by: Admin: 07/29/21 09:18 Dose: 440 mls/hr Documented by: RIGOBERTO Lorazepam (Lorazepam 2 Mg/Ml Inj) 0.5 mg IV NOW ONE Stop: 07/29/21 09:03 Last Admin: 07/29/21 09:19 Dose: 0.5 mg Documented by: RIGOBERTO Morphine Sulfate (Morphine 2 Mg/Ml Inj) 2 mg IV NOW ONE Stop: 07/29/21 08:24 Last Admin: 07/29/21 08:33 Dose: 2 mg Documented by: RIGOBERTO Ondansetron HCl (Ondansetron 4 Mg/2 Ml Inj) 4 mg IV NOW ONE Stop: 07/29/21 08:24 Last Admin: 07/29/21 08:33 Dose: 4 mg Documented by: RIGOBERTO Vital Signs Vital signs: Vital Signs - 8 hr 07/29/21 07:45 07/29/21 07:55 07/29/21 08:45 Temperature 98.5 F Pulse Rate 84 Respiratory Rate 28 H Blood Pressure 169/75 H Pulse Oximetry 93 97 07/29/21 10:06 Temperature 97.8 F Pulse Rate 80 Respiratory Rate 20 Blood Pressure 151/70 H Pulse Oximetry 99 MDM - Neuro Symptoms/Deficit Lab Data Result diagrams: 07/29/21 07:40 07/29/21 07:40 Labs: Lab Results 07/29/21 07/29/21 07/29/21 Range/Units 07:40 07:40 07:40 WBC 23.2 H (4.5-11.0) X10^3/uL RBC 4.33 (4.0-5.2) X10^6/uL Hgb 11.7 L (12.0-16.0) g/dL Hct 36.2 (36-46) % MCV 83.7 (80-100) fL MCH 27.1 (26-34) PG MCHC 32.4 (30-36) % RDW 15.4 H (11.6-14.8) % Plt Count 395 (150-400) X10^3/uL Neut % (Auto) 79.7 H (50-75) % Lymph % (Auto) 10.1 L (25-40) % Antelope % (Auto) 5.8 (3-14) % Eos % (Auto) 3.6 (2-4) % Baso % (Auto) 0.8 (0-2) % Neut # (Auto) 07931 H (4486-2001) /uL Lymph # (Auto) 2300 (3094-5251) /uL Antelope # (Auto) 1400 H (0-900) /uL Eos # (Auto) 800 H (0-450) /uL Baso # (Auto) 200 H (0-100) /uL PT 34.0 H D (10.1-12.7) SECONDS INR 3.0 H (0.9-1.3) APTT 36 (26.4-36.2) SECONDS Sodium 138 (137-145) mmol/L Potassium 4.0 (3.4-5.1) mmol/L Chloride 104 (98-107) mmol/L Carbon Dioxide 33 H (22-32) mmol/L BUN 11 (7-17) mg/dL Creatinine 0.67 (0.52-1.04) mg/dL Estimated GFR > 60 (>60) mL/min BUN/Creatinine Ratio 16.4 (6-22) Glucose 102 (80-110) mg/dL Calcium 8.9 (8.4-10.2) mg/dL Total Bilirubin 0.4 (0.2-1.3) mg/dL AST 18 (14-36) IU/L ALT 9 (<35) IU/L Alkaline Phosphatase 91 (38-126) U/L Total Creatine Kinase 24 L (30-135) U/L CK-MB (CK-2) TNP CK-MB (CK-2) Rel Index TNP Troponin I 0.065 H (0.01-0.034) ng/mL NT-Pro-B Natriuret Pep 334 (<450) pg/mL Total Protein 6.7 (6.3-8.2) g/dL Albumin 3.3 L (3.5-5.0) g/dL Globulin 3.4 (1.7-4.1) g/dL Albumin/Globulin Ratio 1.0 (1.0-2.8) SARS-CoV-2 (PCR) (Negative) 07/29/21 07/29/21 Range/Units 08:10 10:35 WBC (4.5-11.0) X10^3/uL RBC (4.0-5.2) X10^6/uL Hgb (12.0-16.0) g/dL Hct (36-46) % MCV (80-100) fL MCH (26-34) PG MCHC (30-36) % RDW (11.6-14.8) % Plt Count (150-400) X10^3/uL Neut % (Auto) (50-75) % Lymph % (Auto) (25-40) % Antelope % (Auto) (3-14) % Eos % (Auto) (2-4) % Baso % (Auto) (0-2) % Neut # (Auto) (6635-7452) /uL Lymph # (Auto) (7148-7710) /uL Antelope # (Auto) (0-900) /uL Eos # (Auto) (0-450) /uL Baso # (Auto) (0-100) /uL PT (10.1-12.7) SECONDS INR (0.9-1.3) APTT (26.4-36.2) SECONDS Sodium (137-145) mmol/L Potassium (3.4-5.1) mmol/L Chloride (98-107) mmol/L Carbon Dioxide (22-32) mmol/L BUN (7-17) mg/dL Creatinine (0.52-1.04) mg/dL Estimated GFR (>60) mL/min BUN/Creatinine Ratio (6-22) Glucose (80-110) mg/dL Calcium (8.4-10.2) mg/dL Total Bilirubin (0.2-1.3) mg/dL AST (14-36) IU/L ALT (<35) IU/L Alkaline Phosphatase (38-126) U/L Total Creatine Kinase (30-135) U/L CK-MB (CK-2) CK-MB (CK-2) Rel Index Troponin I 0.063 H (0.01-0.034) ng/mL NT-Pro-B Natriuret Pep (<450) pg/mL Total Protein (6.3-8.2) g/dL Albumin (3.5-5.0) g/dL Globulin (1.7-4.1) g/dL Albumin/Globulin Ratio (1.0-2.8) SARS-CoV-2 (PCR) Negative (Negative) Point of Care Testing Glucose POC 84 Imaging Data Chest x-ray: Radiologist's Impression: XRay Report Signed Patient: Alize Eldridge MR#: [id number] : 1945 Acct:[id number] Age/Sex: 76 / F Date of Service: 07/29/21 Loc: ED Accession Number: [id number] ?? Procedure: XR chest 1V Ordering Provider: Margaret Sykes D.O. PROCEDURE:? XR CHEST 1V ? INDICATIONS:? hypoxia ? TECHNIQUE:? One view of the chest was acquired.? ? COMPARISON:? [facility], CT, CT CHEST ABD PEL W CON, 07/24/2021, 11:05.? [facility], CR, XR CHEST 2V, 03/18/2021, 14:15. ? FINDINGS:? ? Surgical changes and devices:? None.? ? Lungs and pleura:? Moderate right-sided pleural effusion is new when compared to the CT from 07/24/2021.? There is atelectasis of the right lung base.? The fusion is cures the known right lung mass.? Soft tissue nodule in the left mid lung zone is better demonstrated on the prior CT.? No left lung consolidation.? No pneumothorax. ? Mediastinum:? Mediastinal contours appear normal.? Heart size is normal.? ? Bones and chest wall:? No suspicious bony lesions.? Overlying soft tissues appear unremarkable.? ? IMPRESSION:? Moderate right-sided pleural effusion is new when compared to the CT from 07/24/2021. ? ? Dictated by: Baudilio Santiago M.D. on 07/29/2021 at 8:08 ? ? Approved by: Baudilio Santiago M.D. on 07/29/2021 at 8:11 ? CT scan - head: Radiologist's Impression: [facility] [place] [id number] CT Scan Report Signed Patient: Alize Eldridge MR#: [id number] : 1945 Acct:[id number] Age/Sex: 76 / F Date of Service: 07/29/21 Loc: ED Accession Number: [id number] ?? Procedure: CT head/brain wo con Ordering Provider: Margaret Sykes D.O. PROCEDURE:? CT HEAD/BRAIN WO CON ? INDICATIONS:? left sided weakness x 2 days on coumadin with lung cancer ? TECHNIQUE:? Noncontrast 4.5 mm thick angled axial sections acquired from the foramen magnum to the vertex, with coronal and sagittal reformats.? For radiation dose reduction, the following was used:? automated exposure control, adjustment of mA and/or kV according to patient size.? ? COMPARISON:? [place], [place], PET/CT SKULL BASE TO MID THIGH, 02/15/2013, 11:27. ? FINDINGS:? Image quality:? Excellent.? ? Brain and CSF spaces:? Basal cisterns are patent.? No extra-axial fluid collections.? The ventricles are symmetric in size and shape.? ? Brain:? A circumscribed hypoattenuating mass is seen centered in the perive ntricular white matter adjacent to the atrium of the left lateral ventricle measuring approximately 4.5 cm anterior-posterior x 3.6 cm transverse x 3.9 cm craniocaudal.? There is surrounding vasogenic edema within the right parietal, occipital, and posterior frontal lobes extending into the basal ganglia and posterior temporal lobe.? There is mass effect on the right lateral ventricle with effacement of the atrium of.? The temporal horns are very mildly asymmetric and larger on the right.? There is focal subfalcine right to left midline shift measuring up to 7 mm just above the body of the corpus callosum.? ? A small hypoattenuating area is seen within the left cerebellar hemisphere likely extending into the left middle cerebral peduncle. ? The basal cisterns are patent.? No extra-axial fluid collection is seen.? No acute intracranial hemorrhage. There is cerebral volume loss for age, with resultant ventricular and sulcal prominence.? There are periventricular and deep white matter chronic small vessel ischemic changes.? There is intracranial internal carotid artery atherosclerosis.? ? Skull and face:? Calvarium and visualized facial bones appear intact, without suspicious lesions.? ? Sinuses:? Visualized sinuses and mastoids are clear.? ? IMPRESSION:? 1. Circumscribed hypoattenuating mass in the right parietal periventricular white matter measuring up to 4.5 cm with surrounding vasogenic edema and mass effect resulting in compression of the atrium of the right lateral ventricle and up to 7 mm of [id number] midline shift.? In the setting of a known lung cancer, findings are suspicious for intracranial metastatic disease.? Recommend MRI with and without contrast for further characterization. 2. Small ill-defined area of hypoattenuation in the left cerebellar hemisphere is of uncertain etiology but may represent an additional small. 3. No acute intracranial hemorrhage. ? Findings were discussed with the referring physician, Dr. Sykes, by telephone on 07/29/2021 at 8:07 AM. ? ? Dictated by: Baudilio Santiago M.D. on 07/29/2021 at 7:53 ? ? Approved by: Baudilio Santiago M.D. on 07/29/2021 at 8:08 ? ECG Data Interpretation: He DD 1. Normal sinus rhythm rate 80 p.r. interval 194 QRS [address] changes no T-wave inversions Q-waves noted in V1 and V2 EKG 2. Normal sinus rhythm rate 82 similar to previous EKG without ischemic changes MDM Narrative Medical decision making narrative: Says the patient has had ongoing symptoms since February progressively getting worse. She has had balance and walking issues for at least the last 2 middle with this. It got significantly worse today. Unable to lift her left leg. Left arm initially also was weak but now seems to be improved. Seizure activity this morning. I was actually called to the room here in the ED for some shaking on the left side, but awake and alert. Not convinced that this is seizure however will cover her Keppra and Ativan. She is found to have a large 4.5 cm mass in her brain without probable 2nd mass on left cerebral head is here. There is also a 7 mm right to left midline shift. She Is given 10 mg of dexamethasone. She reports no increase in shortness of breath although she has a increased right pleural effusion new from last week. She is also found to have persistently elevated leukocytosis. Last week it was thought to be due to her UTI however a has not improved looks like it has been that way for a few days now. She does not appear septic. She is found have indeterminate troponin of 0.065 no EKG changes and denies any chest pain. 10:45am-Repeat troponin is pending INR is noted to be 3.0 but she did not have any evidence of intracranial hemorrhage. Dr Duran, he ED physician at [facility] has been updated on patient's symptoms and test results. Kindly accepts patient for transfer. Patient remains hemodynamically and neurologically stable. GCS 15 upon arrival and remains 15 during her stay. She had a chest abdomen pelvis CT done last week. That has been pushed and report is placed in pack. Discharge Plan Departure Patient Disposition: [facility] Clinical Impression: Brain mass, Lung cancer Prescriptions: No Action acetaminophen [Tylenol Extra Strength] 500 MG tablet 500 - 1,000 mg PO Q4H PRN (Reason: Pain (Scale Score 1-3)) Qty: 0 0RF rosuvastatin [Crestor] 20 mg tablet 20 mg PO DAILY Qty: 90 3RF warfarin 2.5 mg tablet 2.5 mg PO SEE INSTRUCTIONS 0RF Rx Instructions: Take 2.5mg daily, or as directed. Referrals: Jamison Lux MD [Primary Care Provider] -
--- NOTE | 2021-07-29 07:40 | DI.RAD.S_ITS ---
PROCEDURE: XR CHEST 1V INDICATIONS: hypoxia TECHNIQUE: One view of the chest was acquired. COMPARISON: [facility], CT, CT CHEST ABD PEL W CON, 07/24/2021, 11:05. [facility], CR, XR CHEST 2V, 03/18/2021, 14:15. FINDINGS: Surgical changes and devices: None. Lungs and pleura: Moderate right-sided pleural effusion is new when compared to the CT from 07/24/2021. There is atelectasis of the right lung base. The fusion is cures the known right lung mass. Soft tissue nodule in the left mid lung zone is better demonstrated on the prior CT. No left lung consolidation. No pneumothorax. Mediastinum: Mediastinal contours appear normal. Heart size is normal. Bones and chest wall: No suspicious bony lesions. Overlying soft tissues appear unremarkable. IMPRESSION: Moderate right-sided pleural effusion is new when compared to the CT from 07/24/2021. Dictated by: Baudilio Santiago M.D. on 07/29/2021 at 8:08 Approved by: Baudilio Santiago M.D. on 07/29/2021 at 8:11
[2021-07-29 07:45] VITALS: TEMP 36.9
[2021-07-29 07:47] LABS: Add Manual Diff / Slide Review NO; Basophils Absolute Auto 200 /uL (0-100); Basophils Percent Auto 0.8 % (0-2); Eosinophils Absolute Auto 800 /uL (0-450); Eosinophils Percent Auto 3.6 % (2-4); Hematocrit 36.2 % (36-46); Hemoglobin 11.7 g/dL (12.0-16.0); Lymphocytes Absolute Auto 2300 /uL (1100-4500); Lymphocytes Percent Auto 10.1 % (25-40); Mean Corpuscular HGB Conc 32.4 % (30-36); Mean Corpuscular Hemoglobin 27.1 PG (26-34); Mean Corpuscular Volume 83.7 fL (80-100); Monocytes Absolute Auto 1400 /uL (0-900); Monocytes Percent Auto 5.8 % (3-14); Neutrophils Absolute Auto 18500 /uL (1500-7000); Neutrophils Percent Auto 79.7 % (50-75); Platelet Count 395 X10^3/uL (150-400); Red Blood Cell Count 4.33 X10^6/uL (4.0-5.2); Red Cell Distribution Width 15.4 % (11.6-14.8); White Blood Cell Count 23.2 X10^3/uL (4.5-11.0)
--- NOTE | 2021-07-29 07:51 | DI.CT.S_ITS ---
PROCEDURE: CT HEAD/BRAIN WO CON INDICATIONS: left sided weakness x 2 days on coumadin with lung cancer TECHNIQUE: Noncontrast 4.5 mm thick angled axial sections acquired from the foramen magnum to the vertex, with coronal and sagittal reformats. For radiation dose reduction, the following was used: automated exposure control, adjustment of mA and/or kV according to patient size. COMPARISON: [place], [place], PET/CT SKULL BASE TO MID THIGH, 02/15/2013, 11:27. FINDINGS: Image quality: Excellent. Brain and CSF spaces: Basal cisterns are patent. No extra-axial fluid collections. The ventricles are symmetric in size and shape. Brain: A circumscribed hypoattenuating mass is seen centered in the periventricular white matter adjacent to the atrium of the left lateral ventricle measuring approximately 4.5 cm anterior-posterior x 3.6 cm transverse x 3.9 cm craniocaudal. There is surrounding vasogenic edema within the right parietal, occipital, and posterior frontal lobes extending into the basal ganglia and posterior temporal lobe. There is mass effect on the right lateral ventricle with effacement of the atrium of. The temporal horns are very mildly asymmetric and larger on the right. There is focal subfalcine right to left midline shift measuring up to 7 mm just above the body of the corpus callosum. A small hypoattenuating area is seen within the left cerebellar hemisphere likely extending into the left middle cerebral peduncle. The basal cisterns are patent. No extra-axial fluid collection is seen. No acute intracranial hemorrhage. There is cerebral volume loss for age, with resultant ventricular and sulcal prominence. There are periventricular and deep white matter chronic small vessel ischemic changes. There is intracranial internal carotid artery atherosclerosis. Skull and face: Calvarium and visualized facial bones appear intact, without suspicious lesions. Sinuses: Visualized sinuses and mastoids are clear. IMPRESSION: 1. Circumscribed hypoattenuating mass in the right parietal periventricular white matter measuring up to 4.5 cm with surrounding vasogenic edema and mass effect resulting in compression of the atrium of the right lateral ventricle and up to 7 mm of [id number] midline shift. In the setting of a known lung cancer, findings are suspicious for intracranial metastatic disease. Recommend MRI with and without contrast for further characterization. 2. Small ill-defined area of hypoattenuation in the left cerebellar hemisphere is of uncertain etiology but may represent an additional small. 3. No acute intracranial hemorrhage. Findings were discussed with the referring physician, Dr. Sykes, by telephone on 07/29/2021 at 8:07 AM. Dictated by: Baudilio Santiago M.D. on 07/29/2021 at 7:53 Approved by: Baudilio Santiago M.D. on 07/29/2021 at 8:08
[2021-07-29 07:55] VITALS: BP 169/75; PULSE 84; RESP 28; O2SAT 93
[2021-07-29 07:57] LABS: PTT Partial Thromboplastin Tim 36 SECONDS (26.4-36.2)
[2021-07-29 08:00] LABS: Alanine Aminotransferase 9 IU/L (<35); Albumin 3.3 g/dL (3.5-5.0); Alkaline Phosphatase 91 U/L (38-126); Aspartate Aminotransferase 18 IU/L (14-36); BUN Creatinine Ratio 16.4 (6-22); Bilirubin Total 0.4 mg/dL (0.2-1.3); Blood Urea Nitrogen 11 mg/dL (7-17); Calcium 8.9 mg/dL (8.4-10.2); Carbon Dioxide 33 mmol/L (22-32); Chloride 104 mmol/L (98-107); Creatine Kinase 24 U/L (30-135); Estimated Glomerular Filt Rate > 60 mL/min (>60); Globulin 3.4 g/dL (1.7-4.1); Glucose 102 mg/dL (80-110); HEMOLYSIS 25 (0-50); Sodium 138 mmol/L (137-145); Total Protein 6.7 g/dL (6.3-8.2)
[2021-07-29 08:12] LABS: NT-proBNP (BNP-Adult 18+) 334 pg/mL (<450); Troponin I 0.065 ng/mL (0.01-0.034)
[2021-07-29] MEDS: ONDANSETRON 4 MG/2 ML INJ IV (08:33)
[2021-07-29] MEDS: MORPHINE 2 MG/ML INJ IV (08:33)
[2021-07-29 08:45] VITALS: O2SAT 88; O2SAT 97
[2021-07-29 08:46] LABS: COVID19 -Nasal RAPID Negative (Negative)
[2021-07-29] MEDS: DEXAMETHASONE 10 MG/ML VIAL IV (09:18)
[2021-07-29] MEDS: levETIRAcetam 1,000 MG in SODIUM CHLORIDE 0.9% 100 ML 440 MG IV (09:18)
[2021-07-29] MEDS: LORazepam 2 MG/ML INJ 0.5 MG IV (09:19)
[2021-07-29 10:06] VITALS: BP 151/70; PULSE 80; RESP 20; TEMP 36.6; O2SAT 99
--- NOTE | 2021-07-29 10:26 | PC.NURSE ---
Called pt's daughter Patricia and updated on pending transfer.
[2021-07-29 10:47] VITALS: BP 148/71; PULSE 84; RESP 18; O2SAT 98
[2021-07-29] MEDS: SODIUM CHLORIDE 0.9% 1,000 ML 150 ML IV (10:52)
[2021-07-29 11:06] LABS: Troponin I 0.063 ng/mL (0.01-0.034)
== END 2021-07-29 10:51 | disposition short-term general hospital (02) ==
PROVIDERS: Emergency Provider Emergency Medicine; Family Provider Family Medicine; PCP Student in an Organized Health Care Education/Training Program
DX: G93.89 Other specified disorders of brain (principal); C34.90 Malignant neoplasm of unspecified part of unspecified bronchus or lung; R09.02 Hypoxemia; R42 Dizziness and giddiness; R11.0 Nausea; Z20.822 Contact with and (suspected) exposure to COVID-19
CPT/HCPCS: 70450; 71045; 80053; 82550; 82962; 83880; 84484; 85025; 85610; 85730; 87635; 93005; 96365; 96375; 99284; 99285; C9803; J1100; J1953; J2060; J2270; J2405